=== PATIENT | male | born 1945 | race Caucasian/White ===

== ENCOUNTER → 2022-06-17 07:00 | Outpatient (REF) | payer OTHER, SELFPAY ==
--- NOTE | 2022-06-03 10:24 | CM ---
Addendum entered by Mariella Lira 08/21/22 10:10:
Patient's surgery date has been changed to 09/09/22. Spoke with patient via telephone. Reintroduced role of Orthopedic Navigator and confirmed information previously obtained for case management assessment. Also discussed orthopedic program and post
surgical plans. Reviewed anticipated length of stay and that goal is for him to return home at discharge.Patient is in agreement with tentative plan and states that his significant other will be home with him and can assist if needed.
Addendum entered by Mariella Lira 07/22/22 13:30:
Patient has not yet viewed the online education program; message was left with reminder to do so before surgery.
Addendum entered by Mariella Lira 07/01/22 10:42:
Patient's surgery date has changed to 07/29/22.
Original Note:
Patient is scheduled for an elective R Reverse TSA on 07/01/22. Spoke with patient prior to surgery. Introduced role of Orthopedic Navigator. Patient reports that he lives with his significant other in a two story home. Currently he functions
independently. He has a cane, raised toilet seat and shower seat. He has never had VN services. He gets dialysis at [facility] Thursday, Thursday and Thursday. PCP is Dr. Teetee Kellogg.
Discussed orthopedic program and post surgical plans. Reviewed anticipated length of stay and assistance that he may need at discharge. Explained that goal is for him to return home at discharge. Also reviewed MD follow up and transition to
outpatient therapy. Patient is in agreement with tentative plan and states that his significant other will be home with him and can assist if needed.
Patient will complete online education.
Plan: Orthopedic Navigator will be involved in the care of patient after surgery and will reassess discharge needs at that time.
--- NOTE | 2022-06-10 16:10 | PTCARENOTE ---
Requested ICD management from director global sales office via tiger text.
[2022-06-17 13:00] VITALS: BMI 28.2
[2022-06-17 13:46] LABS: Hematocrit 33.1 % (39.0-52.0); Mean Corp Hgb Conc. 33.2 g/dL (33.0-37.0); Mean Corpuscular Hgb 34.1 pg (27.0-31.0); Mean Corpuscular Volume 102.5 fL (80.0-94.0); Mean Platelet Volume 10.8 fL (7.4-10.4); Platelet Count 216 10^3/uL (130-400); Red Blood Cell Count 3.23 10^6/uL (4.70-6.10); Red Cell Dist. Width 13.2 % (11.5-14.5); White Blood Cell Count 5.3 10^3/uL (4.8-10.8)
[2022-06-17 14:03] LABS: ALT (SGPT) 19 U/L (0-50); AST (SGOT) 31 U/L (17-59); Albumin 4.4 g/dl (3.5-5.0); Alkaline Phosphatase 163 U/L (38-126); Blood Urea Nitrogen 22 mg/dl (9-20); Calcium 9.6 mg/dl (8.4-10.2); Carbon Dioxide 35 mmol/L (22-30); Chloride 92 mmol/L (98-107); Estimated Creatinine Clearance 13 ml/min; Glomerular Filtration Rate 12.5; Glucose 93 mg/dl (70-99); Sodium 138 mmol/L (135-145); Total Bilirubin 0.6 mg/dl (0.2-1.3); Total Protein 7.5 g/dl (6.3-8.2)
[2022-06-17 14:28] LABS: Glycohemoglobin (HgbA1c) 5.3 % (4.0-5.6)
[2022-06-17 15:02] VITALS: BMI 28.2
[2022-07-10 14:08] VITALS: BMI 28.5
[2022-07-10 14:27] LABS: Hematocrit 32.5 % (39.0-52.0); Hemoglobin 11.1 g/dL (13.0-18.0); Mean Corp Hgb Conc. 34.2 g/dL (33.0-37.0); Mean Corpuscular Volume 99.7 fL (80.0-94.0); Platelet Count 231 10^3/uL (130-400); Red Blood Cell Count 3.26 10^6/uL (4.70-6.10); Red Cell Dist. Width 13.3 % (11.5-14.5); White Blood Cell Count 6.7 10^3/uL (4.8-10.8)
[2022-07-10 14:41] LABS: ALT (SGPT) 19 U/L (0-50); AST (SGOT) 35 U/L (17-59); Albumin 4.4 g/dl (3.5-5.0); Alkaline Phosphatase 141 U/L (38-126); Blood Urea Nitrogen 23 mg/dl (9-20); Carbon Dioxide 35 mmol/L (22-30); Chloride 90 mmol/L (98-107); Estimated Creatinine Clearance 14 ml/min; Glomerular Filtration Rate 14.7; Glucose 106 mg/dl (70-99); Potassium 5.4 mmol/L (3.5-5.1); Sodium 136 mmol/L (135-145); Total Bilirubin 0.7 mg/dl (0.2-1.3); Total Protein 7.4 g/dl (6.3-8.2)
[2022-07-10 15:17] VITALS: BMI 28.2
[2022-08-26 11:38] LABS: Hematocrit 33.2 % (39.0-52.0); Hemoglobin 11.6 g/dL (13.0-18.0); Mean Corp Hgb Conc. 34.9 g/dL (33.0-37.0); Mean Corpuscular Hgb 34.3 pg (27.0-31.0); Mean Corpuscular Volume 98.2 fL (80.0-94.0); Mean Platelet Volume 10.3 fL (7.4-10.4); Platelet Count 153 10^3/uL (130-400); Red Blood Cell Count 3.38 10^6/uL (4.70-6.10); Red Cell Dist. Width 13.8 % (11.5-14.5); White Blood Cell Count 3.4 10^3/uL (4.8-10.8)
[2022-08-26 11:56] LABS: ALT (SGPT) 21 U/L (0-50); AST (SGOT) 33 U/L (17-59); Albumin 4.6 g/dl (3.5-5.0); Alkaline Phosphatase 115 U/L (38-126); Blood Urea Nitrogen 17 mg/dl (9-20); Calcium 8.9 mg/dl (8.4-10.2); Carbon Dioxide 35 mmol/L (22-30); Chloride 90 mmol/L (98-107); Estimated Creatinine Clearance 18 ml/min; Glomerular Filtration Rate 19.7; Glucose 86 mg/dl (70-99); Potassium 3.9 mmol/L (3.5-5.1); Sodium 138 mmol/L (135-145); Total Bilirubin 0.8 mg/dl (0.2-1.3); Total Protein 7.5 g/dl (6.3-8.2)
[2022-08-26 12:13] LABS: Glycohemoglobin (HgbA1c) 5.1 % (4.0-5.6)
[2022-08-26 13:43] VITALS: BMI 26.8
[2022-08-26 15:07] VITALS: BMI 28.2
== END ==
LOC: REG 07:00
PROVIDERS: ATTENDING PHYSICIAN Specialist; FAMILY PHYSICIAN Family Medicine; OTHER PHYSICIAN Internal Medicine; OTHER PHYSICIAN Specialist
DX: M19.011 Primary osteoarthritis, right shoulder (principal); Z01.812 Encounter for preprocedural laboratory examination
CPT/HCPCS: 36415; 80053; 83036; 85027; 86850; 86900; 86901; 87070

== ENCOUNTER → 2023-06-02 13:01 | Outpatient (REF) | payer OTHER, SELFPAY | LOC: RAD 13:01 | PROVIDERS: ATTENDING PHYSICIAN Surgery Vascular Surgery; FAMILY PHYSICIAN Family Medicine | DX: I77.0 Arteriovenous fistula, acquired (principal) | CPT/HCPCS: 93990 ==

== ENCOUNTER 2023-07-02 08:36 | Day surgery (SDC) | payer OTHER, SELFPAY ==
[2023-07-02] VITALS (8 sets, daily range): BP systolic 115–131; BP diastolic 54–77
[2023-07-02 09:13] LABS: Hematocrit 36.7 % (39.0-52.0); Hemoglobin 12.2 g/dL (13.0-18.0); Mean Corp Hgb Conc. 33.2 g/dL (33.0-37.0); Mean Corpuscular Hgb 34.8 pg (27.0-31.0); Mean Corpuscular Volume 104.6 fL (80.0-94.0); Mean Platelet Volume 10.4 fL (7.4-10.4); Platelet Count 228 10^3/uL (130-400); Red Blood Cell Count 3.51 10^6/uL (4.70-6.10); White Blood Cell Count 6.7 10^3/uL (4.8-10.8)
[2023-07-02 09:22] LABS: INR 0.95; PT 12.7 Sec (11.4-14.6)
[2023-07-02 09:23] LABS: APTT 32.4 Sec (23.4-35.0)
--- NOTE | 2023-07-02 10:19 | W.SUR.PREOP ---
Pre-Operative Surgical Note
-
I have examined this patient prior to the performance of the scheduled procedure.
The patient's condition is unchanged from the time of the current History and
Physical and the patient is able to undergo the scheduled procedure.
[2023-07-02 10:21] LABS: Blood Urea Nitrogen 23 mg/dl (9-20); Calcium 9.6 mg/dl (8.4-10.2); Carbon Dioxide 33 mmol/L (22-30); Chloride 92 mmol/L (98-107); Glucose 92 mg/dl (70-99); Potassium 4.4 mmol/L (3.5-5.1); Sodium 138 mmol/L (135-145); eGFR 11.58
--- NOTE | 2023-07-02 11:37 | W.SUR.POST ---
Surgical Immediate Post Op
Note
Pre Op Diagnosis: ESRD
Post Op Diagnosis: ESRD
Procedure Performed: LUE Fistulagram, central venogram, angioplasty/stent cephalic arch stenosis, angioplasty outflow veins stenoses
Primary Surgeon: Estrada
Anesthesia: local and sedation
Estimated Blood Loss: <2cc
Fluids: see anesthesia flow sheet
Drains/Shunts: none
Specimens/Cultures: none
Doppler/Duplex/Angio (Y/N): Y
Complications: none
Operative Findings: +thrill
--- NOTE | 2023-07-02 17:21 | OR.RPT ---
Operative Report
Operative Report
PROCEDURE DATE: 07/02/2023
Preoperative diagnosis:
1. End-stage renal disease on hemodialysis.
2. Prolonged bleeding after hemodialysis.
Postoperative diagnosis: Same
Procedure:
1. Left upper extremity fistulogram and central venogram.
2. Balloon angioplasty of cephalic arch stenosis with 6 mm, 8 mm angioplasty balloon.
3. Placement of covered stent [place] VBX 7 mm x 59 mm (post angioplastied with 8 mm balloon) recalcitrant cephalic arch stenosis.
4. Balloon angioplasty of multiple other venous outflow stenoses with 7 mm and 6 mm angioplasty balloons.
5. Supervision interpretation.
Surgeon: Estrada
Cigarette Making Examiner: None
Complications: None
Anesthesia: Local, sedation
Indications for procedure:
Prolonged bleeding after hemodialysis. Brought for fistulogram. Risk/benefits/alternatives all fully discussed. Patient understood all wish to proceed.
Description of procedure:
Patient was identified, brought to the operating room. Placed on the table in the supine position. After the adequate administration of anesthesia, the patient was prepped and draped in the standard surgical fashion. A standard preoperative
timeout was undertaken and everybody was in agreement with the plan.
Left upper extremity fistula was punctured near the antecubital fossa and a central facing direction using a micropuncture kit under direct duplex ultrasound guidance. A 6 Italian sheath was then advanced over a 0.035 inch wire. Fistulogram
demonstrated patent outflow of the fistula in the upper arm with 2 aneurysmal areas. Beyond this there was an area of severe stenosis and then the remainder of the upper arm vein looked reasonable. More centrally there is a slightly bulbous area
that may have had is stenosis in it. Almost look like a small pseudoaneurysm. Beyond here there is a severe string-like stenosis of the cephalic arch. Central venogram demonstrated no evidence of other central stenosis. I then selectively was
able to cannulate through the cephalic arch stenosis and catheterized the SVC. I exchanged for a Spect[employer] wire and then angioplastied the stenosis with a 6 mm balloon to predilate it and then an 8 mm angioplasty balloon. Completion angiogram
demonstrated okay results. The balloon waste had not resolved though and there was still some stenosis. Therefore I felt stenting this would be better. At this point I elected to place a 7 mm x 59 mm [place] VBX stent which I post angioplastied with
an 8 mm balloon. Completion angiogram now demonstrated excellent result. There is still mild residual stenosis in the mid cephalic arch but otherwise the stent looked good. Although at the edge of the stent or but just proximal (proximal edge)
there was still residual stenosis when I reangiograms. Therefore I balloon angioplastied that as well as other portions of the outflow vein including the mid upper arm stenosis. This was done with 7 mm angioplasty balloons. Finally I withdrew my
sheath a little bit and performed angiography in the immediate puncture site area and there was some stenosis there. I then used a 6 mm angioplasty balloon to angioplasty that with a good result. At this point I was very satisfied. I withdrew my
wires and catheters. A 4-0 Monocryl pursestring stitch was placed around the sheath entry site and tied down as the sheath was withdrawn. Manual pressure was also applied to the puncture site. Hemostasis was achieved. The patient tolerated the
procedure well.
== END 2023-07-02 13:30 | disposition home or self-care (01) ==
LOC: CATH 08:36
PROVIDERS: ATTENDING PHYSICIAN Surgery Vascular Surgery; FAMILY PHYSICIAN Internal Medicine; OTHER PHYSICIAN Internal Medicine
DX: T82.838A Hemorrhage due to vascular prosthetic devices, implants and grafts, initial encounter (principal); T82.858A Stenosis of other vascular prosthetic devices, implants and grafts, initial encounter; Y83.2 Surgical operation with anastomosis, bypass or graft as the cause of abnormal reaction of the patient, or of later complication, without mention of misadventure at the time of the procedure; I13.2 Hypertensive heart and chronic kidney disease with heart failure and with stage 5 chronic kidney disease, or end stage renal disease; E11.22 Type 2 diabetes mellitus with diabetic chronic kidney disease; N18.6 End stage renal disease; I50.32 Chronic diastolic (congestive) heart failure; Z99.2 Dependence on renal dialysis; Z79.82 Long term (current) use of aspirin
CPT/HCPCS: 36903; 76937; 80048; 85027; 85610; 85730; 86850; 86900; 86901; 93005; C1725; C1769; C1874; C1894; Q9967

== ENCOUNTER → 2023-07-28 14:24 | Outpatient (REF) | payer OTHER, SELFPAY | LOC: RAD 14:24 | PROVIDERS: ATTENDING PHYSICIAN Internal Medicine | DX: M79.674 Pain in right toe(s) (principal) | CPT/HCPCS: 73660 ==

== ENCOUNTER → 2023-11-05 14:00 | Outpatient (REF) | payer OTHER, SELFPAY | LOC: RAD 14:00 | PROVIDERS: ATTENDING PHYSICIAN Surgery Vascular Surgery; FAMILY PHYSICIAN Family Medicine | DX: I77.0 Arteriovenous fistula, acquired (principal) | CPT/HCPCS: 93990 ==

== ENCOUNTER → 2023-11-10 06:41 | Day surgery (SDC) | payer OTHER, SELFPAY | LOC: SDS 06:41 | PROVIDERS: ATTENDING PHYSICIAN Surgery | DX: K40.90 Unilateral inguinal hernia, without obstruction or gangrene, not specified as recurrent (principal); Z53.8 Procedure and treatment not carried out for other reasons | CPT/HCPCS: 49505 ==

== ENCOUNTER 2023-11-26 09:53 | Day surgery (SDC) | payer OTHER, SELFPAY ==
[2023-11-26] VITALS (7 sets, daily range): BP systolic 123–145; BP diastolic 65–74
[2023-11-26 10:49] LABS: INR 1.02; PT 13.4 Sec (11.4-14.6)
[2023-11-26 10:50] LABS: APTT 32.6 Sec (23.4-35.0)
[2023-11-26 11:00] LABS: Blood Urea Nitrogen 27 mg/dl (9-20); Calcium 9.7 mg/dl (8.4-10.2); Carbon Dioxide 33 mmol/L (22-30); Chloride 92 mmol/L (98-107); Glucose 101 mg/dl (70-99); Potassium 4.4 mmol/L (3.5-5.1); Sodium 137 mmol/L (135-145); eGFR 10.02
[2023-11-26] MEDS: NSS 500 IV (11:03)
[2023-11-26 11:11] LABS: Hematocrit 33.8 % (39.0-52.0); Hemoglobin 11.5 g/dL (13.0-18.0); Mean Corpuscular Hgb 33.2 pg (27.0-31.0); Mean Corpuscular Volume 97.7 fL (80.0-94.0); Mean Platelet Volume 10.9 fL (7.4-10.4); Platelet Count 218 10^3/uL (130-400); Red Blood Cell Count 3.46 10^6/uL (4.70-6.10); Red Cell Dist. Width 13.2 % (11.5-14.5); White Blood Cell Count 6.6 10^3/uL (4.8-10.8)
--- NOTE | 2023-11-26 14:21 | W.SUR.POST ---
Surgical Immediate Post Op
Note
Pre Op Diagnosis: ESRD
Post Op Diagnosis: ESRD
Procedure Performed: LUE fistulogram, central venogram, angioplasty of outflow vein stenosis with 6mm and 7mm balloon
Primary Surgeon: Beny Dorado MD
Secondary Surgeons: N/A
Anesthesia: MAC
Estimated Blood Loss: 2ml
Fluids: See anesthesia flowsheet
Drains/Shunts: N/A
Specimens/Cultures: N/A
Doppler/Duplex/Angio (Y/N): Y
Complications: None
Operative Findings: Successful angioplasty of outflow vein stenosis
--- NOTE | 2023-11-26 15:02 | OR.RPT ---
Operative Report
Operative Report
PROCEDURE DATE: 11/26/2023
Preoperative diagnosis:
1. End-stage renal disease on hemodialysis.
2. Failing left upper extremity arteriovenous fistula.
Postoperative diagnosis: Same
Procedure:
1. Left upper extremity fistulogram and central venogram.
2. Balloon angioplasty of outflow vein stenosis with 6 mm x 6 cm, and a 7 mm x 6 cm angioplasty balloons.
3. Supervision and interpretation.
Surgeon: Estrada
Construction Services Technician: None
Complications: None
Anesthesia: Local, sedation
Fluoroscopy:
4.2 min
7 mGy
1.85 Gy.cm2
Indications for procedure:
End-stage renal disease on hemodialysis status post left upper extremity arteriovenous fistula creation. Concern for failing fistula based on low flows noted on hemodialysis referred for fistulogram. Hemodialysis duplex suggested stenosis in the
outflow vein. Risk/benefit/alternatives of fistulogram fully discussed. Patient understood all wish to proceed.
Description of procedure:
Patient was identified, brought to the operating room. Placed on the table in the supine position. After the adequate administration of anesthesia, the patient was prepped and draped in the standard surgical fashion. A standard preoperative
timeout was undertaken and everybody was in agreement with the plan.
The left upper extremity fistula outflow vein (cephalic vein) was punctured in the proximal upper arm in a peripheral facing direction under direct duplex ultrasound guidance. This was done with a micropuncture kit. A 5 Mongolian sheath was then
advanced over a 0.035 inch wire. Note I had mapped the outflow vein of the fistula under duplex prior to puncturing. I noted that there appeared to be a stenotic long segment in the outflow vein immediately proximal to a aneurysmal area but just
distal to the anastomosis. That is why it punctured and a peripheral facing direction from the proximal upper arm. Fistulogram was performed at this point that demonstrated patent fistula, but filling into the fistula was slightly slow. In
addition the 6 cm beyond the anastomosis appeared diffusely stenotic and diseased with some areas of severe focal stenosis. The anastomosis itself appeared patent with no significant stenosis. Beyond this stenotic area there was an aneurysmal
segment. Central venogram demonstrated patent remainder of the upper arm outflow vein, and patent cephalic arch stent. At the peripheral edge of the cephalic vein stent there appeared to be a potential moderate to high-grade stenosis. No other
central stenosis was identified. At this point I selectively cannulated the inflow brachial artery using a flopping of hydrophilic wire and a glide catheter. This proved to be somewhat challenging due to the stenosis, wire advancement was slightly
challenging. However I was able to do so. Next, I advanced my catheter and then exchanged for a [employer] wire. I then used a 6 mm x 6 cm angioplasty balloon to angioplasty the stenotic segment. Completion angiogram demonstrated improvement, but I
felt that I could reduce some of the stenosis further. Therefore I then exchanged for 7 mm angioplasty balloon. Completion angiogram after the 7 mm angioplasty with prolonged inflation demonstrated excellent result. No significant residual
stenosis was identified. At this point the wires and catheters were withdrawn. A 4-0 Monocryl pursestring stitch was placed around the sheath entry site and this was tied down as the sheath was withdrawn. Manual pressure was also applied.
Hemostasis was fully achieved. The patient tolerated procedure well. He had a reasonable thrill upon completion in the fistula.
== END 2023-11-26 16:02 | disposition home or self-care (01) ==
LOC: CATH 09:53
PROVIDERS: ATTENDING PHYSICIAN Surgery Vascular Surgery; FAMILY PHYSICIAN Internal Medicine; OTHER PHYSICIAN Internal Medicine
DX: T82.858A Stenosis of other vascular prosthetic devices, implants and grafts, initial encounter (principal); Y83.2 Surgical operation with anastomosis, bypass or graft as the cause of abnormal reaction of the patient, or of later complication, without mention of misadventure at the time of the procedure; I12.0 Hypertensive chronic kidney disease with stage 5 chronic kidney disease or end stage renal disease; N18.6 End stage renal disease; Z99.2 Dependence on renal dialysis; Z87.891 Personal history of nicotine dependence
CPT/HCPCS: 36902; 80048; 85027; 85610; 85730; 86850; 86900; 86901; C1725; C1769; C1894

== ENCOUNTER 2023-12-19 14:14 | Inpatient (IN) | payer OTHER, SELFPAY ==
[2023-12-19] VITALS (9 sets, daily range): BP systolic 118–143; BP diastolic 67–91; BMI 23.9
[2023-12-19 09:42] LABS: % Basophils 0.9 % (0-2); % Eosinophils 2.5 % (0-6); % Lymphocytes 24.5 % (20.5-51.1); % Monocytes 14.1 % (1.7-9.3); Absolute Basophils 0.1 10^3/uL (0-0.2); Absolute Eosinophils 0.2 10^3/uL (0-0.7); Absolute Lymphocytes 1.6 10^3/uL (1.2-3.4); Absolute Monocytes 0.9 10^3/uL (0.1-0.6); Absolute Neutrophils 3.7 10^3/uL (1.4-6.5); Hematocrit 28.7 % (39.0-52.0); Mean Corp Hgb Conc. 34.8 g/dL (33.0-37.0); Mean Corpuscular Hgb 34.2 pg (27.0-31.0); Mean Corpuscular Volume 98.3 fL (80.0-94.0); Mean Platelet Volume 10.5 fL (7.4-10.4); Nucleated Red Blood Cells % 0 % (-); Platelet Count 166 10^3/uL (130-400); Red Blood Cell Count 2.92 10^6/uL (4.70-6.10); Red Cell Dist. Width 13.4 % (11.5-14.5); White Blood Cell Count 6.4 10^3/uL (4.8-10.8)
[2023-12-19 09:53] LABS: APTT 32.8 Sec (23.4-35.0)
--- NOTE | 2023-12-19 10:05 | ED.GENMED ---
History of Present Illness
General
Chief Complaint: Catheter/Tube Problem
Source: patient
Time Seen by Provider: 12/19/23 09:06
History of Present Illness
History of Present Illness:
78yoM with a history of ESRD on hemodialysis M/W/F presenting for evaluation of a malfunction of his L arm fistula. Patient was at dialysis yesterday and only had 1 hour of his session before his fistula stopped working. He was sent to the ED for
evaluation. He follows with vascular surgery, Dr. Dorado, and recently underwent a fistulogram with balloon angioplasty of outflow vein stenosis on 11/26/23. Patient is currently asymptomatic other than some malaise. No fevers, vomiting, diarrhea,
shortness of breath.
Past History
Past History
ED Past Medical History: CHF, HTN, Renal failure, Valvular disease and Other (Chronic renal insufficiency)
ED Past Surgical History: Cardiac, Orthopedic, Tonsilectomy and Other
Social History
Tobacco: Non-smoker
Alcohol: Occasional
Drug: None
Personal:
Living: with family
Employment: Retired
Family History
Family History: Negative Diabetes, Hypertension or CAD
Phy Exam
General Physical Exam
General Presentation: well appearing and no apparent distress
General age: appears stated age
General Skin: warm and dry
General Habitus: normal
General Mental: alert
Cardiovascular Exam
Cardiovascular Exam: regular rate/rhythm and systolic murmur
Pulmonary Exam
Pulmonary Exam: lungs clear, no respiratory distress, no crackles and no wheezing
[place] Coma Scale
Eye Opening: Spontaneous
Verbal Response: Oriented
Motor Response: Obeys Commands
GCS Total Score: 15
Musculoskeletal Exam
Musculoskeletal Exam: other (L upper arm fistula present. No palpable thrill. )
Skin Exam
Skin Exam: normal color and warm/dry
Psychiatric Exam
Psychiatric Exam: normal mood/affect
Course
Orders/Labs/Results
Orders:
Orders
12/19/23 09:20
Consult Vascular Surgery [Vascular Surgery Consult] Urgent
Consulting Provider: Sylvia Hall
Was physician already notified: Yes
Reason for consult: Failed fistula
12/19/23 09:30
Complete Blood Count/With Diff Urgent
Comprehensive Metabolic Panel Urgent
PTT Urgent
Prothrombin Time Urgent
12/19/23 09:35
Consult Nephrology [NEPHROLOGY CONSULT] Urgent
Consulting Provider: Dav Aranda V.
Was physician already notified: Yes
12/19/23 Lunch
Sodium, 2 Gram
At Your Request: Full Participation
Does patient need a safe tray?: No
Fluid Restriction: 1440 mL/day (48 oz)
Low Sodium: Potassium, 2 Gram
12/19/23 13:08
Admit/Transfer Patient As Directed
Co-Sign Provider:
Level of Care: Inpatient admission
Assign to:: Telemetry
Physician / Group: Sivakumar Lopez
Transfer to: Telemetry
Diagnosis: LUE fistula malfunction
Patient Condition: Good
Reason for Telemetry: Arrhythmia
Date to Stop Telemetry: 12/22/23
Time to Stop Telemetry: 11:00
Reason for Hospitalization: Fistula malfunction, vascular consult for intervention/secondary access
Expected length of stay greater than two midnights?: Yes
ELOS- Estimated Length of Stay in days: 2
I certify the patient meets the requirements for IP care: Yes
12/19/23 13:09
PRN Pain Medication Management As Directed
May give lesser potent ordered pain med per pt: Yes
preference::
Protocol:: Medication orders for pain may be administered in a
manner that supports deferring to patient preference
when the pt is:
- Requesting an ordered lesser potent pain medication.
Least to most potent pain medications are defined
as: acetaminophen < NSAID < tramadol < opioids
(morphine, oxycodone, hydromorphone).
- Requesting a lesser dose of the same medication IF
ORDERED.
- Requesting a less intrusive route of administration
if both routes are prescribed by the provider (PO <
IV).
12/19/23 13:12
Code Status As Directed
Resuscitation Status: Full Code
12/19/23 14:48
Bisacodyl [Dulcolax] 10 mg RECTAL [id number] PRN
Docusate W/Senna [Senokot-S] 1 tablet PO BIDPRN PRN
Polyethylene Glycol Powder [Miralax] 17 grams PO DAILYPRN PRN
doxepin 6 mg PO HS PRN
12/19/23 14:48
Activity As Directed
Activity Level: Out of Bed-Early Mobility
Intake/ Output As Directed
Frequency: q12h
Pneumatic Compression Sleeves As Directed
Type: Knee high
Vital Signs As Directed
Frequency: Per unit guidelines
Weight As Directed
Frequency: Daily
DX Deep Vein Thrombosis Video Routine
12/19/23 16:00
HydrALAZINE [Apresoline] 25 mg PO TID
Sevelamer Carbonate [Renvela] 800 mg PO TID
12/19/23 18:00
Atorvastatin [Lipitor] 40 mg PO QPM
12/19/23 20:00
Furosemide [Lasix] 80 mg PO BID
Metoprolol Xl [Toprol Xl] 50 mg PO BID
Nabumetone [Relafen] 750 mg PO BID
[id number] [ProRenal QD] 1 cap PO BID
12/20/23 06:00
Basic Metabolic Panel IN AM
Complete Blood Count/With Diff IN AM
Magnesium IN AM
12/20/23 08:00
ISOSORBIDE MONOnitrate ER [Imdur (Extended Release)] 30 mg PO DAILY
Metolazone [Zaroxolyn] 5 mg PO DAILY
ropinirole 4 mg PO DAILY
12/20/23 12:00
Allopurinol [Zyloprim] 100 mg PO NOON
Aspirin Low Dose EC [Aspir Low (Enteric Coated)] 81 mg PO NOON
12/21/23 13:08
calcitriol 0.5 mcg PO MOWEFR
12/22/23 11:00
DC Protocol for Telemetry ONCE
Abnormal Lab Results
12/19/23
09:30
RBC 2.92 L 10^6/uL
(4.70-6.10)
Hgb 10.0 L g/dL
(13.0-18.0)
Hct 28.7 L %
(39.0-52.0)
MCV 98.3 H fL
(80.0-94.0)
MCH 34.2 H pg
(27.0-31.0)
MPV 10.5 H fL
(7.4-10.4)
Absolute Monos (auto) 0.9 H 10^3/uL
(0.1-0.6)
Monocytes % 14.1 H %
(1.7-9.3)
Chloride 93 L mmol/L
(98-107)
BUN 48 H mg/dl
(9-20)
Creatinine 8.5 H* mg/dL
(0.7-1.3)
12/19/23 09:30
12/19/23 09:30
Vital Signs
Initial and Last Documented VS:
Initial Vital Signs
Temp Pulse Resp BP Pulse Ox
98.1 F 83 16 139/77 99
12/19/23 08:46 12/19/23 08:46 12/19/23 08:46 12/19/23 08:46 12/19/23 08:46
Last Documented Vital Signs
Temp Pulse Resp BP Pulse Ox
98.6 F 79 16 142/70 99
12/19/23 14:46 12/19/23 14:46 12/19/23 14:46 12/19/23 14:46 12/19/23 14:46
MDM/Problems Addressed
Differential Diagnosis Includes:
78yoM here for an AV fistula malfunction. Fistula stopped working yesterday and he only had 1 hour of dialysis. He is relatively asymptomatic currently. He is afebrile and hemodynamically stable. He is well appearing in no distress. Differential
diagnosis includes but is not limited to: fistula malfunction, hyperkalemia, no clinical evidence of volume overload
Initial ED plan: Check CBC, CMP, and coags. Will consult vascular surgery and nephrology.
*Critical Care Note
Total Time (30-74mins, 75-104mins- exclusive of procedures): Not Applicable
Update Note
Update Note:
No hyperkalemia or metabolic acidosis noted on labs. No volume overload clinically. No emergent need for dialysis. Vascular planning a declotting procedure on Thursday. He will require admission over the weekend until his procedure.
ED Attending Note
-
Portions of this chart may have been created with voice recognition software.� Occasional wrong word or��sound alike� substitutions may have occurred due to the inherent limitations of voice recognition software.
Discharge Plan
Departure
Patient Disposition: Admit
Date of Disposition: 12/19/23
Time of Disposition: 10:01
Presentation/result/management discussed w/ accepting MD/DO: Hospitalist
Discharge Problem:
Dialysis AV fistula malfunction
Interventions
Interventions:
*Risk Screen - Suicide Last Done: 12/19/23 09:01
*General Assessment Last Done: 12/19/23 09:01
*Neglect/Abuse Screening Last Done: 12/19/23 09:01
ED- Fall Risk Assessment Last Done: 12/19/23 09:01
*ED COVID-19 Vaccine History Last Done: 12/19/23 09:01
*Nursing Disposition Last Done: 12/19/23 14:47
IF-Sdgzod-Tqhxveseol Assessment Last Done: 12/19/23 09:01
ED-Male Genitourinary Assessment Last Done: 12/19/23 09:01
Discharge Date and Time
Discharge Date/Time: 12/19/23 14:47
[2023-12-19 10:07] LABS: AST (SGOT) 21 U/L (17-59); Albumin 4.1 g/dl (3.5-5.0); Alkaline Phosphatase 98 U/L (38-126); Blood Urea Nitrogen 48 mg/dl (9-20); Carbon Dioxide 24 mmol/L (22-30); Chloride 93 mmol/L (98-107); Estimated Creatinine Clearance 7 ml/min; Glucose 84 mg/dl (70-99); Potassium 4.9 mmol/L (3.5-5.1); Sodium 137 mmol/L (135-145); Total Bilirubin 0.7 mg/dl (0.2-1.3); Total Protein 6.5 g/dl (6.3-8.2); eGFR 5.94
[2023-12-19 10:16] LABS: ALT (SGPT) 10 U/L (0-50)
--- NOTE | 2023-12-19 10:18 | W.CON.NEPH ---
Consultation
-
Date/Time Consultation Requested: 12/19/2023 10:00AM
Date/Time Consultation Performed: 12/19/2023 10:00 AM
Requesting Provider: Dr. Arroyo
Performing Provider: Dr. Aranda
Reason for Consultation: End-stage renal disease
Medical History
-
Chief Complaint: End-stage renal disease
History of Present Illness:
The patient is a 78 year old with a history of ESRD MWF maintain on HD at [facility]. The patient underwent left upper extremity AV fistula balloon angioplasty on 11/26/2023 for failing AV fistula. During his dialysis last evening
approximately chcf through the treatment his AV fistula became dysfunction. He was instructed to report to the emergency room today for vascular evaluation of his downed AV fistula. The patient has a history of anemia of chronic kidney disease
and is maintained on RILEY therapy. He is maintained on calcitriol for secondary hyperparathyroidism and sevelamer for his hyperphosphatemia. He is maintained on a multidrug antihypertensive regimen for his hypertension. He offers no other specific
complaints on presentation.
Past Medical History
1. History of ESRD on dialysis Thursday, Thursday, Thursday.
2. Recent history of right hip fracture, conservative treatment.
3. Anemia of CKD.
4. Secondary hyperparathyroidism.
5. Hypertension, multidrug.
6. Left arm AV fistula with previous interventions.
7. Cardiomyopathy with an EF of 25-30%, status post ICD.
8. Hyperphosphatemia.
9. Moderate aortic stenosis.
10.Severe TR.
11.Pulmonary hypertension.
12.Bilateral shoulder arthritis.
13.Chronic right knee pain.
14.Recent 8 cm left inguinal hernia.
Social History
Tobacco: Former Smoker
Alcohol: Occasional
Family History
No CKD
Allergies / Home Medications
Allergy/AdvReac Type Severity Reaction Status Date / Time
naproxen Allergy Hives Verified 11/24/23 15:33
�Medication �Instructions �Recorded �Confirmed �Type
allopurinol 100 mg tablet 100 mg PO NOON Gout 10/28/21 11/26/23 History
aspirin 81 mg tablet,delayed 81 mg PO NOON Blood Clot 10/28/21 11/26/23 History
release (Krystal Low Dose Aspirin) Prevention/Tx
atorvastatin 40 mg tablet 40 mg PO QPM High cholesterol 10/28/21 11/26/23 History
furosemide 80 mg tablet 80 mg PO BID Fluid 10/28/21 11/26/23 History
retention/Swelling
isosorbide mononitrate 30 mg 30 mg PO DAILY Heart 10/28/21 11/26/23 History
tablet,extended release 24 hr disease/condition
metolazone 5 mg tablet 5 mg PO DAILY Fluid 10/28/21 11/26/23 History
retention/Swelling
mv,Rt-acd-BR-C2-GU-0-ltz-rrf-arxh 1 cap PO BID High Cholesterol 09/29/22 11/26/23 History
oil 400 mcg-500 unit capsule
(ProRenal QD)
hydralazine 25 mg tablet 25 mg PO TID Blood Pressure 11/21/22 11/26/23 History
nabumetone 750 mg tablet 750 mg PO BID 06/15/23 11/26/23 History
calcitriol 0.5 mcg capsule 0.5 mcg PO MOWEFR 07/02/23 11/26/23 History
doxepin 6 mg tablet 6 mg PO HS PRN sleep 07/02/23 11/26/23 History
metoprolol succinate 50 mg 50 mg PO BID 07/02/23 11/26/23 History
tablet,extended release 24 hr
(Toprol XL)
ropinirole 4 mg tablet 4 mg PO DAILY 07/02/23 11/26/23 History
sevelamer carbonate 800 mg tablet 800 mg PO TID 07/02/23 11/26/23 History
(Renvela)
Review of Systems
-
History Source: Patient
All other systems: Negative unless noted
Constitutional: Fatigue
EENT: No Symptoms
Respiratory: No Symptoms
Cardiac: No Symptoms
Abdomen/GI: No Symptoms
: Other (Baseline scant urine output)
Musculoskeletal: No Symptoms
Skin: No Symptoms
Neurological: No Symptoms
Endocrine: No Symptoms
Hematologic/Lymphatic: Other (Left upper extremity AV fistula)
Physical Exam
Vital Signs
Vital Signs
Temp Pulse Resp BP Pulse Ox
98.1 F 83 16 132/78 97
12/19/23 08:46 12/19/23 08:46 12/19/23 08:46 12/19/23 09:03 12/19/23 09:04
Lab Results
12/19/23 09:30
12/19/23 09:30
WBC 6.4 10^3/uL (4.8-10.8) 12/19/23 09:30
RBC 2.92 10^6/uL (4.70-6.10) L 12/19/23 09:30
Hgb 10.0 g/dL (13.0-18.0) L 12/19/23 09:30
Hct 28.7 % (39.0-52.0) L 12/19/23 09:30
Plt Count 166 10^3/uL (130-400) 12/19/23 09:30
Sodium 137 mmol/L (135-145) 12/19/23 09:30
Potassium 4.9 mmol/L (3.5-5.1) 12/19/23 09:30
Chloride 93 mmol/L (98-107) L 12/19/23 09:30
Carbon Dioxide 24 mmol/L (22-30) 12/19/23 09:30
BUN 48 mg/dl (9-20) H 12/19/23 09:30
Creatinine 8.5 mg/dL (0.7-1.3) H* 12/19/23 09:30
eGFR 5.94 12/19/23 09:30
Glucose 84 mg/dl (70-99) 12/19/23 09:30
Calcium 9.0 mg/dl (8.4-10.2) 12/19/23 09:30
Albumin 4.1 g/dl (3.5-5.0) 12/19/23 09:30
Physical Exam
General: AOx3, Nontoxic , NAD
HEENT: PERRL, EOMI, Anicteric, Conjunctivae Clear, Ear/Nose Intact, Hearing Normal, Oropharynx Clear/Moist, Dentition Intact, Facial Symmetry, Neck Supple, Neck: Trachea Midline, No JVD and No Thyromegaly, no Bruits
Respiratory: Clear to auscultation bilaterally with normal lung exersion
Cardiac: S1/S2 and Regular Rate with 4/6 TAMIR at left border
Breast: Deferred by me
Abdomen: Soft, Nontender, Nondistended, Normal Bowel Sounds and No Hepatosplenomegaly
Rectal: Deferred by Provider
Genito-urinary: No Costovertebral Tenderness
Extremities: No Clubbing, No Cyanosis and No Edema
Skin: No Rash or open lesions
Neuro: Nonfocal/Grossly Intact, CN II-XII (Intact) and Strength (Musculoskeletal exam 5 out of 5 both upper and lower extremities)
Hematologic/Lymphatic: No Cervical Lymphadenopathy, No Submandibular Lymphadenopathy and No Supraclavicular Lymphadenopathy
Psych: Mood/afflect pleasant, Insight/judgement good and Appropriate
Vascular: plus 1 pedal and radial pulses
Vascular Access: AVF (Left brachiocephalic AV fistula no thrill or bruit)
Data Reviewed
-
Medical Tests (Nuc Med, Echo etc): Other (AV fistulogram report to be reviewed, November 2023 AV fistula report reviewed)
Labs: Labs Reviewed by me (BMP CBC)
Old Records: Reviewed (Reviewed previous records in EMR from 823 re: COVID-pneumonia and ESRD)
Assessment/Plan
-
Impression:
AVF dysfunction s/p AVF PCI 12/03
ESRD MWF
Anemia
HTN
2pth
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
hyperphosphatemia
Moderate aortic stenosis
Severe TR
Pulmonary hypertension
Plan:
No acute need for dialysis today based on labs and volume status
Will reevaluate tomorrow for possible HD and may require temp HD catheter
Hopefully patient can wait till Thursday to have AV fistula intervention and dialysis
Vascular has been consulted
Maintain oral antihypertensives for blood pressure control
RILEY will be provided on dialysis for anemia
Maintain calcitriol for secondary hyperparathyroid
Maintain phosphate binders with meals already
Maintain less than 2 g sodium potassium diet and fluid restriction of 48 ounces daily
--- NOTE | 2023-12-19 12:47 | HPS.HSE ---
Family Physician
-
Family Physician: Luís Keane
Chief Complaint
-
Tube/Line problem
History of Present Illness
78-year-old female with ESRD (HD M/W/F; C/B anemia, bone mineral disease), HFrEF (EF 25 to 30%, s/p ICD), pulmonary hypertension, valvular disease (moderate , severe TR), HTN, bilateral shoulder OA, s/p recent right hip fracture is presenting to
the ED after malfunction of his left arm fistula use for dialysis access. He was at his dialysis center yesterday and only had 1 hour before his fistula stopped working. He was sent to the ED for evaluation. Follows with vascular surgery,
Estrada, who performed fistulogram with balloon angioplasty of the outflow vein stenosis on 11/26/2023. He denies any acute symptoms other than some mild malaise. AFVSS on arrival. Labs showed creatinine 8.5, BUN 48, hemoglobin 10 but otherwise
unremarkable and no findings necessitating urgent hemodialysis. Was seen by nephrology while in the ED who recommended holding off on HD today and planning for HD tomorrow. Vascular surgery was consulted, home medications were continued and recs
for 2 g sodium and potassium restricted diet with 48 ounce fluid restriction provided
Medical History
Past Medical History
Past Medical History: Reports CHF, HTN and Valvular Disease
Additional Past Medical History:
ESRD (M/W/F)
Past Surgical History: Reports Cardiac and Orthopedic
Social History
Tobacco: Former Smoker
Alcohol: Occasional
Drug: None
Family History
Family History: Not pertinent
Allergies / Home Medications
Allergies reflects when Allergies were last updated in [employer].
Home Medications with original date entered in [employer]
Allergy/Medication List:
Allergies
Allergy/AdvReac Type Severity Reaction Status Date / Time
naproxen Allergy Hives Verified 11/24/23 15:33
Home Medications
allopurinol 100 mg tablet 100 mg PO NOON Gout 10/28/21
aspirin 81 mg tablet,delayed release (Krystal Low Dose Aspirin) 81 mg PO NOON Blood Clot Prevention/Tx 10/28/21
atorvastatin 40 mg tablet 40 mg PO QPM High cholesterol 10/28/21
furosemide 80 mg tablet 80 mg PO BID Fluid retention/Swelling 10/28/21
isosorbide mononitrate 30 mg tablet,extended release 24 hr 30 mg PO DAILY Heart disease/condition 10/28/21
metolazone 5 mg tablet 5 mg PO DAILY Fluid retention/Swelling 10/28/21
mv,Am-evv-FG-D1-NK-1-cwr-mcy-eklq oil 400 mcg-500 unit capsule (ProRenal QD) 1 cap PO BID High Cholesterol 09/29/22
hydralazine 25 mg tablet 25 mg PO TID Blood Pressure 11/21/22
nabumetone 750 mg tablet 750 mg PO BID 06/15/23
calcitriol 0.5 mcg capsule 0.5 mcg PO MOWEFR 07/02/23
doxepin 6 mg tablet 6 mg PO HS PRN sleep 07/02/23
metoprolol succinate 50 mg tablet,extended release 24 hr (Toprol XL) 50 mg PO BID 07/02/23
ropinirole 4 mg tablet 4 mg PO DAILY 07/02/23
sevelamer carbonate 800 mg tablet (Renvela) 800 mg PO TID 07/02/23
Review of Systems
-
A 12 point ROS was completed and negative except as noted: Yes
Constitutional: Reports No Symptoms
EENT: Reports No Symptoms
Respiratory: Reports No Symptoms
Cardiac: Reports No Symptoms
Abdomen/GI: Reports No Symptoms
: Reports No Symptoms
Musculoskeletal: Reports No Symptoms
Skin: Reports No Symptoms
Neurological: Reports No Symptoms
Endocrine: Reports No Symptoms
Hematologic/Lymphatic: Reports No Symptoms
Physical Exam
Vital Signs
Vital Signs
Temp Pulse Resp BP Pulse Ox
98.1 F 83 16 143/91 95
12/19/23 08:46 12/19/23 08:46 12/19/23 08:46 12/19/23 12:00 12/19/23 12:15
Physical Exam
General: No Apparent Distress and Comfortable
HEENT: NormoCephalic, Anicteric and Moist mucous membranes
Respiratory: Clear and Non Labored Respirations; No Wheezes, Rales or Rhonchi
Cardiac: S1/S2, Regular Rhythm and Murmur; No Rub, Gallop, Peripheral Edema or JVD
GI: Soft, Non Tender, Non Distended and Normal Bowel Sounds
Musculoskeletal: No Clubbing, No Cyanosis and No Edema
Skin: Warm and Dry; No Rash
Neuro: AO x 3, Nonfocal/grossly intact and Cranial Nerves Intact
Psych: Calm
Laboratory Results
-
12/19/23 09:30
12/19/23 09:30
Laboratory Results
PT 14.0 Sec (11.4-14.6) 12/19/23 09:30
INR 1.10 12/19/23 09:30
APTT 32.8 Sec (23.4-35.0) 12/19/23 09:30
Total Bilirubin 0.7 mg/dl (0.2-1.3) 12/19/23 09:30
AST 21 U/L (17-59) 12/19/23 09:30
ALT 10 U/L (0-50) 12/19/23 09:30
Alkaline Phosphatase 98 U/L (38-126) 12/19/23 09:30
Data Reviewed
-
Lab Data: Labs Reviewed by me and Discussed with Patient
Impression/Plan
-
#ESRD on HD M//
#LUE fistula malfunction
#Anemia of CKD on EPO
#Secondary hyperparathyroidism
-Presented with fistula malfunction, dialysis session yesterday discontinued after 1 hour
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
-Home medications include calcitriol, sevelamer, prorenal capsule; on sequential nephron blockade for diuresis
-Evaluated by nephrology, no need for urgent dialysis at this time, labs without acute indication
-Vascular surgery was consulted for intervention to correct fistula, declotting procedure planned Thursday
-Trend daily labs for consideration of hemodialysis before Thursday
-Sodium, potassium, fluid restricted diet
#Resistant hypertension
-Currently on multimodal regimen, suspect this contributed to his ESRD
-Home medications include hydralazine, isosorbide, Lasix, metolazone, beta-nadege; on HD for additional volume removal
-Upon arrival blood pressure 143/91, will continue to monitor closely
-Order as needed hydralazine for SBP >190 mmHg
#HFrEF -- LVEF 25 to 30% on last TTE
#Severe pulmonary hypertension with TR
#Valvular heart disease (MR, TR, moderate )
#Status post AICD
-Unclear etiology, may be progressive hypertensive cardiomyopathy versus valvular disease versus underlying ischemia
-GDMT includes beta-nadege; no ACEi/ARB, MRA, SGLT2
-Diuretic regimen includes Lasix 80 mg twice daily, metolazone 5 mg daily
-Appears euvolemic as of now, no indication for urgent dialysis
-Will trend I's/O's, sodium and fluid restricted diet
#Bilateral shoulder osteoarthritis
-Currently on nabumetone 750 mg twice daily
#Status post recent right hip fracture
-Treated conservatively
#Gout
-Remains on allopurinol 100 mg at noon
-No signs of flare at this time
DVT prophylaxis: SCDs
Diet: 2 g sodium and potassium restricted, 48 ounce fluid restricted
CODE STATUS:
I will be admitting Kieran Lott to the hospital for workup of the cause/intervention to fix the malfunction to his left upper extremity fistula for HD access. He is at high risk of ongoing morbidity and mortality from volume overload, electrolyte
disturbance, acidemia the context of end-stage renal disease without the ability to perform HD. He will require intensive monitoring his labs. He may require potential placement of secondary access for dialysis. I have spoken with the ED
provider, medical technologist blood bank, vascular surgery team in regards to this patient's care.
--- NOTE | 2023-12-19 14:30 | PTCARENOTE ---
Patient admitted through the emergency room from home with a non functioning left upper arm fistula.He will have a vascular consult with possible surgery on Thursday.The patient is alert and oriented and denies any pain.He is in his bed with the call
sterling in reach.
[2023-12-19] MEDS: RENVELA 800 MG PO ×2 (16:47→22:21)
[2023-12-19] MEDS: APRESOLINE 25 MG PO ×2 (16:47→22:21)
[2023-12-19] MEDS: LIPITOR 40 MG PO (17:15)
[2023-12-19] MEDS: LASIX 80 MG PO (20:41)
[2023-12-19] MEDS: TOPROL XL 50 MG PO (20:41)
[2023-12-20] VITALS (7 sets, daily range): BP systolic 116–146; BP diastolic 52–75; BMI 26.8
[2023-12-20] MEDS: REQUIP 4 MG PO ×2 (02:53→22:00)
[2023-12-20 06:10] LABS: % Basophils 0.8 % (0-2); % Eosinophils 3.7 % (0-6); % Immature Granulocytes 0.3 % (0-0.5); % Lymphocytes 24.7 % (20.5-51.1); % Neutrophils 57.5 % (42.2-75.2); Absolute Basophils 0.1 10^3/uL (0-0.2); Absolute Eosinophils 0.2 10^3/uL (0-0.7); Absolute Lymphocytes 1.6 10^3/uL (1.2-3.4); Absolute Monocytes 0.8 10^3/uL (0.1-0.6); Absolute Neutrophils 3.7 10^3/uL (1.4-6.5); Hemoglobin 9.1 g/dL (13.0-18.0); Mean Corpuscular Hgb 33.5 pg (27.0-31.0); Mean Corpuscular Volume 95.6 fL (80.0-94.0); Mean Platelet Volume 10.6 fL (7.4-10.4); Nucleated Red Blood Cells % 0 % (-); Platelet Count 155 10^3/uL (130-400); Red Blood Cell Count 2.72 10^6/uL (4.70-6.10); Red Cell Dist. Width 13.2 % (11.5-14.5); White Blood Cell Count 6.5 10^3/uL (4.8-10.8)
[2023-12-20 06:35] LABS: Blood Urea Nitrogen 60 mg/dl (9-20); Carbon Dioxide 23 mmol/L (22-30); Chloride 93 mmol/L (98-107); Estimated Creatinine Clearance 6 ml/min; Glucose 81 mg/dl (70-99); Magnesium 2.5 mg/dl (1.6-2.3); Potassium 4.5 mmol/L (3.5-5.1); Sodium 136 mmol/L (135-145); eGFR 5.07
[2023-12-20] MEDS: NEPHROCAP 1 CAPSULE PO (09:01)
[2023-12-20] MEDS: RENVELA 800 MG PO ×3 (09:01→21:59)
[2023-12-20] MEDS: TOPROL XL 50 MG PO ×2 (09:01→20:28)
[2023-12-20] MEDS: LASIX 80 MG PO ×2 (09:01→20:27)
[2023-12-20] MEDS: ZAROXOLYN 5 MG PO (09:01)
[2023-12-20] MEDS: APRESOLINE 25 MG PO ×2 (09:01→22:02)
[2023-12-20] MEDS: IMDUR (EXTENDED RELEASE) 30 MG PO (09:01)
--- NOTE | 2023-12-20 09:58 | CON.VAS ---
Medical History
-
Chief Complaint: LUE AVF Dysfunction
History of Present Illness:
78M LUE AVF with recent fistulogram for AVF dysfunction with Dr. Dorado on 11/25. Presents with occluded LUE AVF on thursday after dialysis. On exam no pulsatility or thrill.
Past Medical History
Past Medical History: GERD, HTN, Hypercholesterolemia and Renal Failure
Social History
Tobacco: Non-Smoker
Allergies / Home Medications
Allergy/AdvReac Type Severity Reaction Status Date / Time
naproxen Allergy Hives Verified 11/24/23 15:33
�Medication �Instructions �Recorded �Confirmed �Type
allopurinol 100 mg tablet 100 mg PO NOON Gout 10/28/21 11/26/23 History
aspirin 81 mg tablet,delayed 81 mg PO NOON Blood Clot 10/28/21 11/26/23 History
release (Krystal Low Dose Aspirin) Prevention/Tx
atorvastatin 40 mg tablet 40 mg PO QPM High cholesterol 10/28/21 11/26/23 History
furosemide 80 mg tablet 80 mg PO BID Fluid 10/28/21 11/26/23 History
retention/Swelling
isosorbide mononitrate 30 mg 30 mg PO DAILY Heart 10/28/21 11/26/23 History
tablet,extended release 24 hr disease/condition
metolazone 5 mg tablet 5 mg PO DAILY Fluid 10/28/21 11/26/23 History
retention/Swelling
mv,Yl-yxk-DY-C1-EP-3-ezh-nml-cxzw 1 cap PO BID High Cholesterol 09/29/22 11/26/23 History
oil 400 mcg-500 unit capsule
(ProRenal QD)
hydralazine 25 mg tablet 25 mg PO TID Blood Pressure 11/21/22 11/26/23 History
nabumetone 750 mg tablet 750 mg PO BID ARTHRITIS 06/15/23 11/26/23 History
calcitriol 0.5 mcg capsule 0.5 mcg PO MOWEFR RENAL 07/02/23 11/26/23 History
doxepin 6 mg tablet 6 mg PO HS PRN sleep 07/02/23 11/26/23 History
metoprolol succinate 50 mg 50 mg PO BID Blood Pressure 07/02/23 11/26/23 History
tablet,extended release 24 hr
(Toprol XL)
ropinirole 4 mg tablet 4 mg PO DAILY PARKINSONS 07/02/23 11/26/23 History
sevelamer carbonate 800 mg tablet 800 mg PO TID RENAL 07/02/23 11/26/23 History
(Renvela)
Physical Exam
Vital Signs
Temp Pulse Resp BP Pulse Ox
97.6 F 68 16 140/71 98
12/20/23 07:30 12/20/23 07:30 12/20/23 07:30 12/20/23 07:30 12/20/23 07:30
Lab Results
12/20/23 05:54
12/20/23 05:54
Physical Exam
General: Well Developed, Well Nourished and No Apparent Distress
HEENT: Normocephalic
Respiratory: Clear
Cardiac: S1/S2
GI: Soft
Musculoskeletal: Other (LUE AVF dysfunction )
Skin: Warm
Neuro: AO x 3
Assessment / Plan
-
78M with clotted LUE AVF
-NPO @ [facility]
-plan for fistulagram tomorrow AM with declot and possible TDC placement
--- NOTE | 2023-12-20 11:46 | W.PN.NEPH.PH ---
Today's Communication / Plan
-
Dialysis tomorrow after AV fistula intervention
Assessment/Plan
-
Impression:
AVF dysfunction s/p AVF PCI 12/03
ESRD MWF
Anemia
HTN
2pth
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
hyperphosphatemia
Moderate aortic stenosis
Severe TR
Pulmonary hypertension
Plan:
No acute need for dialysis today based on labs and volume status
Dialysis will be planned tomorrow after AV fistula revision and/or PCI
Maintain oral antihypertensives for blood pressure control
RILEY will be provided on dialysis for anemia
Maintain calcitriol for secondary hyperparathyroid
Maintain phosphate binders with meals already
Maintain less than 2 g sodium potassium diet and fluid restriction of 48 ounces daily
-
-
Date of Service: December 20, 2023
CC / HPI / ROS
-
Chief Complaint:
End-stage renal disease
History of Present Illness:
ESRD Thursday
Blood pressure well-controlled on antihypertensives and dry weight
Review of Systems:
Weights up
No fevers chills shortness of breath or chest pain
Labs
-
Labs:
WBC 6.5 10^3/uL (4.8-10.8) 12/20/23 05:54
RBC 2.72 10^6/uL (4.70-6.10) L 12/20/23 05:54
Hgb 9.1 g/dL (13.0-18.0) L 12/20/23 05:54
Hct 26.0 % (39.0-52.0) L 12/20/23 05:54
Plt Count 155 10^3/uL (130-400) 12/20/23 05:54
Sodium 136 mmol/L (135-145) 12/20/23 05:54
Potassium 4.5 mmol/L (3.5-5.1) 12/20/23 05:54
Chloride 93 mmol/L (98-107) L 12/20/23 05:54
Carbon Dioxide 23 mmol/L (22-30) 12/20/23 05:54
BUN 60 mg/dl (9-20) H 12/20/23 05:54
Creatinine 9.7 mg/dL (0.7-1.3) H* 12/20/23 05:54
eGFR 5.07 12/20/23 05:54
Glucose 81 mg/dl (70-99) 12/20/23 05:54
Calcium 9.0 mg/dl (8.4-10.2) 12/20/23 05:54
Albumin 4.1 g/dl (3.5-5.0) 12/19/23 09:30
Physical Exam
-
Vital Signs:
Vital Signs
Temp Pulse Resp BP Pulse Ox
97.5 F 61 16 123/65 99
12/20/23 11:15 12/20/23 11:15 12/20/23 11:15 12/20/23 11:15 12/20/23 11:15
Respiratory:: Bilateral: Coarse
Lung Excursion:: Normal
Abdomen:: Nontender and Soft
Bowel Sounds:: Normal
Extremity Edema:: None: Bilateral:
Rosario Catheter: No
Other Findings::
Left upper extremity AV fistula with no thrill or bruit
[2023-12-20] MEDS: ASPIR LOW (ENTERIC COATED) 81 MG PO (12:37)
[2023-12-20] MEDS: ZYLOPRIM 100 MG PO (12:37)
--- NOTE | 2023-12-20 13:25 | W.PN.HOSP.TC ---
Today's Communication/Plan
-
Monitor daily BMP and CBC
Plan for dialysis tomorrow after fistulogram
Assessment / Plan
Assessment / Plan
#ESRD on HD //
#LUE fistula malfunction
#Anemia of CKD on EPO
#Secondary hyperparathyroidism
-Presented with fistula malfunction, dialysis session yesterday discontinued after 1 hour
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
-Home medications include calcitriol, sevelamer, prorenal capsule; on sequential nephron blockade for diuresis
-Evaluated by nephrology, no need for urgent dialysis at this time, labs without acute indication
-Vascular surgery was consulted for intervention to correct fistula, declotting procedure planned Thursday
-Trend daily labs, plan for dialysis tomorrow after fistulogram
-Sodium, potassium, fluid restricted diet
#Resistant hypertension
-Currently on multimodal regimen, suspect this contributed to his ESRD
-Home medications include hydralazine, isosorbide, Lasix, metolazone, beta-nadege; on HD for additional volume removal
-Upon arrival blood pressure 143/91, will continue to monitor closely
-Order as needed hydralazine for SBP >190 mmHg
#HFrEF -- LVEF 25 to 30% on last TTE
#Severe pulmonary hypertension with TR
#Valvular heart disease (MR, TR, moderate )
#Status post AICD
-Unclear etiology, may be progressive hypertensive cardiomyopathy versus valvular disease versus underlying ischemia
-GDMT includes beta-nadege; no ACEi/ARB, MRA, SGLT2
-Diuretic regimen includes Lasix 80 mg twice daily, metolazone 5 mg daily
-Appears euvolemic as of now, no indication for urgent dialysis
-Will trend I's/O's, sodium and fluid restricted diet
#Bilateral shoulder osteoarthritis
-Currently on nabumetone 750 mg twice daily
#Status post recent right hip fracture
-Treated conservatively
#Gout
-Remains on allopurinol 100 mg at noon
-No signs of flare at this time
DVT prophylaxis: SCDs
Diet: 2 g sodium and potassium restricted, 48 ounce fluid restricted
CODE STATUS: Full code
Anticipated Discharge: 24 - 48 hours
Subjective/Interval History
-
Date of Service: December 20, 2023
Seen and examined at the bedside. No acute events overnight. AFVSS this morning
He denies any and all acute complaints. Feels well, has been up and moving around the room without issue.
Objective Data
-
Labs:
Laboratory Results
12/20/23
05:54
WBC 6.5
Hgb 9.1 L
Hct 26.0 L
Plt Count 155
Sodium 136
Potassium 4.5
Chloride 93 L
Carbon Dioxide 23
BUN 60 H
Creatinine 9.7 H*
Glucose 81
Calcium 9.0
Vital Signs:
Vital Signs
Temp Pulse Resp BP Pulse Ox
97.5 F 61 16 123/65 99
12/20/23 11:15 12/20/23 11:15 12/20/23 11:15 12/20/23 11:15 12/20/23 11:15
I&O
12/19/23 12/20/23 12/21/23
06:59 06:59 06:59
Intake Total 680 / 680
Balance 680 / 680
Review of Systems
-
History Source: Patient
All other systems: Reviewed and negative
Physical Exam
-
General: Well Nourished, No Apparent Distress and Comfortable
HEENT: Normocephalic, Atraumatic and Moist Mucous Membranes
Respiratory: Clear to Auscultation and Non Labored Respirations; Negative Wheezes, Rales or Rhonchi
Cardiac: Regular Rhythm, S1/S2 and Murmur; Negative Rub, JVD or Gallop
GI: Soft, Nontender, Nondistended and Normal Bowel Sounds
Musculoskeletal: No Clubbing, No Cyanosis and No Edema
Skin: Warm and Dry; Negative Rash
Neuro: AO x 3, Nonfocal/Grossly Intact and Central Nerve's Intact
Data Reviewed
-
Labs: Labs Reviewed by me and Discussed with Patient
--- NOTE | 2023-12-20 15:19 | CM ---
Met with patient at bedside; initial assessment completed
Pharmacy verified: [facility] @ [address] [facility]
Patient reported he lives with a friend in a multilevel home; 1 step to enter 14 steps to 2nd floor; railings on stairs; powder room 1st floor; 2nd floor bath has stall shower with grab bar; has shower chair if needed
PLOF: patient reported he is independent with ambulation, stairs, and ADLs; retired; drives. Goes to Hemodialysis 3 time a week @ [facility]
DME: none
SNF utilization in the past
Home Health services after procedure in the past
Friend, Mariangel, will provide transport home
Fistula malfunction; reported he is having a procedure tomorrow to repair or replace; may also need HD during this hospitalization
Agreeable to home health VN if recommended
Plan: Discharge to home when medically stable; CM will monitor for discharge needs/services
--- NOTE | 2023-12-20 15:42 | W.PN.UPDATE ---
Update Note
Progress Note Update
Spoke with Dr. Dorado who states Fistula is beyond salvage due to multiple previous fistulagrams with low chance of patency with declot. Please consult IR for tunneled catheter placement and Estrada will see patient as followup
--- NOTE | 2023-12-20 15:49 | W.PN.UPDATE ---
Update Note
Progress Note Update
Spoke with vascular surgery through believes that his LUE fistula is not salvageable. Placed a consult for interventional for dialysis catheter placement, likely to be done tomorrow
[2023-12-20] MEDS: APRESOLINE PO (16:28)
[2023-12-20] MEDS: LIPITOR 40 MG PO (17:21)
[2023-12-21] VITALS (8 sets, daily range): BP systolic 66–151; BP diastolic 61–76; BMI 26.6
[2023-12-21] MEDS: TOPROL XL PO (08:13)
[2023-12-21] MEDS: ZAROXOLYN 5 MG PO (08:15)
[2023-12-21] MEDS: APRESOLINE 25 MG PO ×3 (08:15→22:12)
[2023-12-21] MEDS: IMDUR (EXTENDED RELEASE) 30 MG PO (08:16)
[2023-12-21] MEDS: NEPHROCAP 1 CAPSULE PO (08:16)
[2023-12-21] MEDS: RENVELA 800 MG PO ×3 (08:16→22:11)
[2023-12-21] MEDS: ROCALTROL 0.5 MCG PO (08:16)
[2023-12-21] MEDS: LASIX 80 MG PO ×2 (09:19→20:07)
[2023-12-21] MEDS: FLUSH (NSS) 1 FLUSH IV (11:03)
[2023-12-21] MEDS: ANCEF 10 IV (11:03)
--- NOTE | 2023-12-21 11:26 | CM ---
Reviewed the chart notes and spoke with the patient and spouse at the bedside. The patient is scheduled to go to IR for dialysis catheter placement today. CM continues to be available to patient/family and is monitoring medical plan for needs at
discharge.
Plan: Discharge to home when medically stable.
--- NOTE | 2023-12-21 12:31 | PTCARENOTE ---
1229: Patient arrived back to 2S from IR. R tunnel catheter in place. Assessment remains unchanged from AM. Care ongoing at this time.
[2023-12-21 13:10] LABS: Hematocrit 25.2 % (39.0-52.0); Hemoglobin 8.9 g/dL (13.0-18.0)
[2023-12-21] MEDS: ASPIR LOW (ENTERIC COATED) 81 MG PO (13:21)
[2023-12-21] MEDS: ZYLOPRIM 100 MG PO (13:21)
--- NOTE | 2023-12-21 13:28 | W.PN.HOSP.TC ---
Addendum entered and electronically signed by Tulio Augustine MD 12/21/23 14:28:
78-year-old female with dialysis access malfunction
Seen during HD
Denies symptoms
I personally performed a history and physical exam of the patient and discussed management with the resident. I reviewed the resident's note and agree with the documented findings and plan of care HPI/CC except changes in my documentation
CVS: S1-S2 normal, sm at aa
Chest: CTA B/L
Abdomen: Soft, NT / Bowel sounds present
Extremities: No edema
# Left upper extremity fistula malfunction
End-stage renal disease on dialysis Thursday
Continue calcitriol, sevelamer, pro renal capsule
Vascular surgery consulted-fistula is considered to be nonsalvageable because of multiple fistulogram's
IR consulted for tunneled catheter
Vascular will place new access as outpatient
# Multidrug-resistant hypertension-continue hydralazine, Lasix, metolazone, beta-blockers and dialysis for fluid removal
# Chronic HFrEF-EF 25 to 30%
Severe pulmonary hypertension
Valvular heart disease-MR/TR/moderate
Status post AICD
Left bundle branch block
Continue beta-nadege
Not on MARITZA inhibitor/ARB/ARNI/MRA/SGLT2 inhibitor-unclear reasons
# Bilateral shoulder osteoarthritis-On nabumetone 750 mg twice daily
# Status post recent right hip fracture-Treated conservatively
# Anemia likely secondary to CKD on erythropoietin replacements as outpatient. Iron studies adequate. B 12 pending.
# Secondary hyperparathyroidism
# Gout-Remains on allopurinol 100 mg at noon
# 1.3 cm pulmonary nodule noted on CT 11/21/22-needs outpatient follow-up
# Insomnia-continue doxepin
# Restless leg syndrome-continue ropinirole
# Hyperlipidemia-continue atorvastatin
# Ex-smoker
# DVT prophylaxis-add subcutaneous heparin
# CODE STATUS-full code
D/W
D/W Vascular
D/W Renal.
D/W RN and also HD rn at bed side
If Ok with all discharge home after HD today
Part of this note was created using voice recognition system. Occasional wrong word or��sound alike� substitutions may have inadvertently occurred due to the inherent limitations of voice recognition software. If noted kindly bring it to my
attention for correction.
Original Note:
Today's Communication/Plan
-
R IJ tunneled catheter placement by IR, followed by HD and probable discharge w/ Follow up with Vascular Surgery for new fistula as OP
Assessment / Plan
Assessment / Plan
78 yo M PMHx of ESRD on hemodialysis // who presented with a malfunction of LUE fistula
##LUE fistula malfunction
#ESRD on dialysis (//)
#Anemia secondary to ESRD (on EPO)
#Secondary Hyperparathyroidism
-Presented with fistula malfunction from dialysis
-C/w Home meds calcitriol, sevelamer carbonate and ProRenal capsule; on sequential nephron blockade for diuresis
-Vascular consulted, deemed the fistula to be nonsalvageable; IR to place tunneled R IJ dialysis catheter in the AM today, followed by HD in the afternoon
-Sodium, potassium, fluid restricted diet as below; will trend CMPs as needed
#Resistant hypertension
-C/w home hydralazine, Imdur, Lasix, metolazone, Metoprolol Succinate
-Continue to monitor BP; have been stable since admission
-hydralazine as needed to maintain SBP <180 mmHg
#HFrEF (EF 25-30% on 09/01)
#Severe pulmonary HTN
#Valvular heart disease (MR, TR, mod. )
- s/p AICD placement
- On Lasix, metolazone, Metoprolol Succinate (no ACEi/ARB, SGLT2, or MAR)
- Trending I/O, sodium and fluid restricted diet as below
#Osteoarthritis B/L Shoulder
- C/w home nabumetone 750 mg BID
#Gout
- c/w home allopurinol
#Parkinson's Symptoms
- c/w home Ropinirole
#Dispo
DVT PPx: SCDs
Diet: 2g Na and K, 48 oz fluid restricted
Code Status: Full code
Anticipated Discharge: Within 24 hours
Subjective/Interval History
-
Seen in the AM, no acute complaints at this time. IR Tunneled R IJ hemodialysis catheter placement scheduled for the AM with Hemodialysis in the afternoon.
Objective Data
-
Labs:
Laboratory Results
12/21/23
12:59
Hgb 8.9 L
Hct 25.2 L
Sodium Pending
Potassium Pending
Chloride Pending
Carbon Dioxide Pending
BUN Pending
Creatinine Pending
Glucose Pending
Calcium Pending
Vital Signs:
Vital Signs
Temp Pulse Resp BP Pulse Ox
97.3 F 64 18 131/69 97
12/21/23 12:33 12/21/23 12:33 12/21/23 12:33 12/21/23 12:33 12/21/23 12:33
I&O
12/20/23 12/21/23 12/22/23
06:59 06:59 06:59
Intake Total 680 / 680 1320 / 1320
Balance 680 / 680 1320 / 1320
Review of Systems
-
History Source: Patient
All other systems: Reviewed and negative
Constitutional: Reports No Symptoms
EENT: Reports No Symptoms Reported
Respiratory: Reports No Symptoms
Cardiac: Reports No Symptoms
Abdomen/GI: Reports No Symptoms
Breast: Reports N/A
Genitourinary: Reports No Symptoms
Musculoskeletal: Reports No Symptoms
Skin: Reports No Symptoms
Neuro: Reports No Symptoms
Endocrine: Reports No Symptoms
Hematologic / Lymphatic: Reports No Symptoms
Physical Exam
-
General: Well Developed, Well Nourished, No Apparent Distress, Comfortable and Conversant
HEENT: Normocephalic, Atraumatic, Moist Mucous Membranes, Anicteric, [place] Conjunctivae and PERRLA
Respiratory: Clear to Auscultation
Cardiac: Regular Rhythm, S1/S2 and Murmur
GI: Soft, Nontender, Nondistended and Normal Bowel Sounds
Musculoskeletal: No Clubbing, No Cyanosis, No Edema and Normal Gait & Station
Neuro: Awake, Alert, Oriented, Nonfocal/Grossly Intact and No Sensory Deficits
Psych: Calm
[2023-12-21 13:45] LABS: Blood Urea Nitrogen 68 mg/dl (9-20); Carbon Dioxide 20 mmol/L (22-30); Chloride 92 mmol/L (98-107); Estimated Creatinine Clearance 5 ml/min; Glucose 85 mg/dl (70-99); Iron 55 ug/dl (49-181); Potassium 4.7 mmol/L (3.5-5.1); Sodium 134 mmol/L (135-145); eGFR 4.27
[2023-12-21 13:58] LABS: Percent Saturation 23 % (20-50); Total Iron Binding Capacity 232 ug/dl (261-462)
[2023-12-21] MEDS: RETACRIT 8000 UNITS IV (14:05)
--- NOTE | 2023-12-21 14:58 | W.PN.NEPH.HD ---
Assessment
-
pt seen during HD
vitals stable, UF to bring to EDW
CVC reversed,, will use heparin post
next HD on Thursday at the [facility]
AVF likely not salvageable per vasc, f/u vasc out pt
RILEY for anemia
d/w pt
Progress Note - Hemodialysis
-
Date of Service: December 21, 2023
Duration: 4 hours
Potassium Bath: 2
Calcium Bath: 2.5
Opti-Dialyzer: 160
Ultrafiltration: Other (3-3.5kg)
Blood Flow: 400
Dialysate Flow: 600
Heparin: no
EPO: 8000
[2023-12-21] MEDS: MANNITOL 25% 12.5 GRAMS IV (15:13)
[2023-12-21 15:30] LABS: Vitamin B12 388 pg/ml (239-931)
[2023-12-21] MEDS: HEPARIN 4000 UNITS INTRACATH (17:42)
[2023-12-21] MEDS: LIPITOR 40 MG PO (17:43)
--- NOTE | 2023-12-21 18:09 | W.DCSUMMARY ---
Discharge Summary
Discharge Data
Date of Admission: 12/19/23
Date of Discharge: 12/22/23
-
Pending Results: No
Hospital Course
Discharging Physician : Dr. Aleksandr Trevino, Dr. Tulio Augustine
Disposition : Home
Primary care physician : Luís Keane DO
Principal Discharge diagnosis : Left Upper Extremity Fistula Malfunction, ESRD, Resistant Hypertension, Chronic HFrEF, Secondary Hyperparathyroidism
Chronic Discharge diagnosis : Chronic Osteoarthritis of the BL Shoulders, Gout, Restless Leg Syndrome
Hospital Course :
Patient presented to the [facility] on 12/19/2023 after receiving scheduled Dialysis the day before (Thursday). He received only about an hour and a half of dialysis before it was determined that his fistula was malfunctioning. He came to the ED the
following day. Labs were drawn and the vascular surgery team was consulted. It was determined at that time that there was no immediate need for dialysis based on clinical signs and lab work. Due to repeated angioplasties and procedures involving the
LUE fistula, it was determined to be nonsalvageable and the decision was made to proceed with a tunneled IJ dialysis catheter which would be placed by the Interventional Radiology team. The IJ catheter placement took place on Thursday, after which the
patient received his scheduled dialysis. That night there was complaint of pain for which the patient received a single dose of 5mg Oxycodone and Tylenol. The following morning the patient reported no new pain and had no acute complaints. He was
deemed stable for discharge. A follow up appointment was scheduled with Vascular Surgery for potential placement of new fistula, for which venous mapping of the UE took place on 12/22/2023, prior to discharge. The patient was also sent home with a
script for OP Physical Therapy after an inpatient evaluation recommended he seek outpatient treatment for mobility/strength of the right leg.
Patient was discharged home in the afternoon fo 12/22/2023 with a script for PT/OT, instructions to follow up with his Primary Care provider and an appointment with Vascular Surgery scheduled for January 12 2024.
Important imaging findings :
US Pre AV Fistula Bilateral:
Patent upper extremity arterial systems. Of note, the right subclavian artery was not visualized due to overlying tunneled catheter.
Peripheral IV is present in the cephalic vein with short segment thrombus noted at the level of the catheter. Otherwise, the upper extremity basilic and cephalic veins are patent. No evidence of deep vein thrombosis.
Procedure findings :
Tunneled right internal jugular hemodialysis catheter placement (X-ray, Fluoroscopy, Ultrasound):
Successful placement tunneled right internal jugular hemodialysis catheter. Catheter ready for use.
Discharge Plan
-
Patient Disposition: Home (Routine Discharge)
Discharge Diagnosis/Procedures: AV Fistula malfunction, ESRD requiring Dialysis
Condition: Good
Diet: No restrictions
Activity: No restrictions
Driving Restrictions: As prior to admission
Bathing Restrictions: Refer to IV Nurses Instructions
Referrals:
Beny Dorado MD [Active] - 01/12/24 11:00 am (Vascular follow up)
Luís Keane DO [Family Provider] -
Prescriptions:
Continued
atorvastatin 40 mg Tablet
40 mg PO QPM
isosorbide mononitrate 30 mg Tablet Extended Release 24 Hr
30 mg PO DAILY
metolazone 5 mg Tablet
5 mg PO DAILY
Rx Instructions:
1 hour prior to lasix
allopurinol 100 mg Tablet
100 mg PO NOON
aspirin [Krystal Low Dose Aspirin] 81 mg Tablet,Delayed Release (Dr/Ec)
81 mg PO NOON
furosemide 80 mg Tablet
80 mg PO BID
ProRenal QD 400-500 mcg-unit capsule
1 cap PO BID
hydralazine 25 mg Tablet
25 mg PO TID
nabumetone 750 mg Tablet
750 mg PO BID
metoprolol succinate [Toprol XL] 50 mg Tablet Extended Release 24 Hr
50 mg PO BID
calcitriol 0.5 mcg Capsule
0.5 mcg PO MOWEFR
ropinirole 4 mg Tablet
4 mg PO DAILY
sevelamer carbonate [Renvela] 800 mg Tablet
800 mg PO TID
doxepin 6 mg Tablet
6 mg PO HS PRN (Reason: sleep)
Discharge Orders:
Discharge Patient (As Directed); Ordered 12/22/23
Ordered By: Aleksandr Trevino
Discharge Date and Time
Discharge Date/Time: 12/22/23 15:16
Print Language: SUDANESE
[2023-12-21] MEDS: ROXICODONE 5 MG PO (18:29)
[2023-12-21] MEDS: TOPROL XL 50 MG PO (20:08)
[2023-12-21] MEDS: REQUIP 4 MG PO (22:12)
[2023-12-21] MEDS: TYLENOL 650 MG PO (22:21)
[2023-12-22 03:42] VITALS: BP 144/69
[2023-12-22 05:45] VITALS: BMI 25.3
[2023-12-22] MEDS: ZAROXOLYN 5 MG PO (07:30)
[2023-12-22] MEDS: APRESOLINE 25 MG PO (07:30)
[2023-12-22] MEDS: IMDUR (EXTENDED RELEASE) 30 MG PO (07:30)
[2023-12-22] MEDS: TOPROL XL 50 MG PO (07:30)
[2023-12-22] MEDS: RENVELA 800 MG PO (07:30)
[2023-12-22] MEDS: NEPHROCAP 1 CAPSULE PO (07:30)
[2023-12-22 07:51] VITALS: BP 139/71
[2023-12-22] MEDS: LASIX 80 MG PO (08:38)
[2023-12-22 09:24] VITALS: BP 116/73; PULSE 68
--- NOTE | 2023-12-22 09:30 | PTOTSP ---
The patient is independent with ambulation and elevations, offering no concerns regarding his mobility upon return home. Patient is very interested in working with Outpatient PT to improve right leg strength (will need script written for Outpatient
PT). No acute PT needs at this time, will sign off.
--- NOTE | 2023-12-22 09:49 | W.PN.HOSP.TC ---
Addendum entered and electronically signed by Tulio Augustine MD 12/22/23 14:20:
I personally performed a history and physical exam of the patient and discussed management with the resident. I reviewed the resident's note and agree with the documented findings and plan of care HPI/CC,except changes in my documentation
CVS: S1-S2 normal, sm at aa
Chest: CTA B/L, chest wall PC
Abdomen: Soft, NT / Bowel sounds present
Extremities: No edema
# Left upper extremity fistula malfunction
End-stage renal disease on dialysis Thursday
Continue calcitriol, sevelamer, pro renal capsule
Vascular surgery consulted-fistula is considered to be nonsalvageable because of multiple fistulogram's
IR placed tunneled catheter
Vascular will place new access as outpatient
Mapping USS prior to discharge
# Multidrug-resistant hypertension-continue hydralazine, Lasix, metolazone, beta-blockers and dialysis for fluid removal
# Chronic HFrEF-EF 25 to 30%
Severe pulmonary hypertension
Valvular heart disease-MR/TR/moderate
Status post AICD
Left bundle branch block
Continue beta-nadege
Not on MARITZA inhibitor/ARB/ARNI/MRA/SGLT2 inhibitor-unclear reasons
# Bilateral shoulder osteoarthritis-On nabumetone 750 mg twice daily
# Status post recent right hip fracture-Treated conservatively
# Anemia likely secondary to CKD on erythropoietin replacements as outpatient. Iron studies adequate. B 12 low normal , replace.
# Secondary hyperparathyroidism
# Gout-Remains on allopurinol 100 mg at noon
# 1.3 cm pulmonary nodule noted on CT 11/21/22-needs outpatient follow-up
# Insomnia-continue doxepin
# Restless leg syndrome-continue ropinirole
# Hyperlipidemia-continue atorvastatin
# Ex-smoker
# DVT prophylaxis- subcutaneous heparin
# CODE STATUS-full code
D/W at bed side
D/W Renal.
Discharge planning time 38 min
Original Note:
Today's Communication/Plan
-
Patient will obtain Venous mapping US of the UE prior to discharge
Assessment / Plan
Assessment / Plan
78 yo M PMHx of ESRD on hemodialysis // who presented with a malfunction of LUE fistula
##LUE fistula malfunction; s/p R IJ Tunneled Catheter Placement
#ESRD on dialysis (//)
#Anemia secondary to ESRD (on EPO)
#Secondary Hyperparathyroidism
-Presented with fistula malfunction from dialysis
-C/w Home meds calcitriol, sevelamer carbonate and ProRenal capsule; on sequential nephron blockade for diuresis
-Vascular consulted, deemed the fistula to be nonsalvageable; IR placed tunneled R IJ dialysis catheter. Patient has a f/u appointment scheduled and will obtain Venous mapping US of UE today before leaving.
- IR to change dressing for catheter, after which the patient is stable for discharge.
#Resistant hypertension
- C/w home hydralazine, Imdur, Lasix, metolazone, Metoprolol Succinate
- Bps have been stable since admission, no need for medication changes at this time.
#HFrEF (EF 25-30% on 09/01)
#Severe pulmonary HTN
#Valvular heart disease (MR, TR, mod. )
- s/p AICD placement
- On Lasix, metolazone, Metoprolol Succinate (no ACEi/ARB, SGLT2, or MAR)
- Trending I/O, sodium and fluid restricted diet as below
#Osteoarthritis B/L Shoulder
- C/w home nabumetone 750 mg BID
#Gout
- c/w home allopurinol
#Parkinson's Symptoms
- c/w home Ropinirole
#Dispo
DVT PPx: SCDs
Diet: 2g Na and K, 48 oz fluid restricted
Code Status: Full code
Anticipated Discharge: Today
Subjective/Interval History
-
Seen in the AM. patient's pain post IJ catheter insertion was managed well overnight with one dose of 5mg Oxy. he slept well and has no acute complaints this morning.
Objective Data
-
Vital Signs:
Vital Signs
Temp Pulse Resp BP Pulse Ox
97.5 F 65 19 121/68 100
12/22/23 07:51 12/22/23 08:38 12/22/23 07:51 12/22/23 08:38 12/22/23 07:51
I&O
12/21/23 12/22/23 12/23/23
06:59 06:59 06:59
Intake Total 1320 / 1320 1200 / 1200
Balance 1320 / 1320 1200 / 1200
Review of Systems
-
History Source: Patient
All other systems: Reviewed and negative
Constitutional: Reports No Symptoms
EENT: Reports No Symptoms Reported
Respiratory: Reports No Symptoms
Cardiac: Reports No Symptoms
Abdomen/GI: Reports No Symptoms
Breast: Reports N/A
Genitourinary: Reports No Symptoms
Musculoskeletal: Reports No Symptoms
Skin: Reports Itching (At the site of catheter placement)
Neuro: Reports No Symptoms
Endocrine: Reports No Symptoms
Physical Exam
-
General: Well Developed, Well Nourished, No Apparent Distress and Conversant
HEENT: Normocephalic, Atraumatic, Moist Mucous Membranes, Anicteric, [place] Conjunctivae and PERRLA
Respiratory: Clear to Auscultation
Cardiac: Regular Rhythm and S1/S2
Breast: N/A
GI: Soft, Nontender, Nondistended and Normal Bowel Sounds
Musculoskeletal: No Clubbing, No Cyanosis and No Edema
Skin: IV Access / Catheter Site (Tunneled R IJ Dialysis Catheter, covered with some serosanguinous drainage, no discharge, fluctuance or erythema )
Neuro: Awake, Alert, Oriented, No Motor Deficits and Nonfocal/Grossly Intact
--- NOTE | 2023-12-22 09:58 | CM ---
Reviewed the chart notes. IMM reviewed. Patient on HD. Patient to resume HD at [facility]. CM continues to be available to patient/family and is monitoring medical plan for needs at discharge.
Plan: Discharge to home when medically stable. No anticipated needs.
[2023-12-22 11:08] VITALS: BP 130/66
[2023-12-22] MEDS: ZYLOPRIM 100 MG PO (11:25)
[2023-12-22] MEDS: ASPIR LOW (ENTERIC COATED) 81 MG PO (11:25)
[2023-12-22 15:06] VITALS: BP 148/80
--- NOTE | 2023-12-22 15:23 | W.PN.NEPH.PH ---
Today's Communication / Plan
-
d/c today
Assessment/Plan
-
Impression:
AVF dysfunction s/p AVF PCI 12/03
ESRD MWF
Anemia
HTN
2pth
FRONT DESK
hyperphosphatemia
Moderate aortic stenosis
Severe TR
Pulmonary hypertension
Plan:
AVF not salvageable, vasc f/u out pt
CVC functions fine, for d/c today
return to [facility] tomorrow
hemodynamically stable
d/w
-
-
Date of Service: December 22, 2023
CC / HPI / ROS
-
Chief Complaint:
End-stage renal disease
History of Present Illness:
ESRD Thursday
Blood pressure well-controlled on antihypertensives
wt better post HD 12/20
Review of Systems:
No fevers chills shortness of breath or chest pain
feels at baseline
Labs
-
Labs:
WBC 6.5 10^3/uL (4.8-10.8) 12/20/23 05:54
RBC 2.72 10^6/uL (4.70-6.10) L 12/20/23 05:54
Hgb 8.9 g/dL (13.0-18.0) L 12/21/23 12:59
Hct 25.2 % (39.0-52.0) L 12/21/23 12:59
Plt Count 155 10^3/uL (130-400) 12/20/23 05:54
Sodium 134 mmol/L (135-145) L 12/21/23 12:59
Potassium 4.7 mmol/L (3.5-5.1) 12/21/23 12:59
Chloride 92 mmol/L (98-107) L 12/21/23 12:59
Carbon Dioxide 20 mmol/L (22-30) L 12/21/23 12:59
BUN 68 mg/dl (9-20) H 12/21/23 12:59
Creatinine 11.2 mg/dL (0.7-1.3) H* 12/21/23 12:59
eGFR 4.27 12/21/23 12:59
Glucose 85 mg/dl (70-99) 12/21/23 12:59
Calcium 9.0 mg/dl (8.4-10.2) 12/21/23 12:59
Albumin 4.1 g/dl (3.5-5.0) 12/19/23 09:30
Physical Exam
-
Vital Signs:
Vital Signs
Temp Pulse Resp BP Pulse Ox
97.5 F 74 16 148/80 98
12/22/23 15:06 12/22/23 15:06 12/22/23 15:06 12/22/23 15:06 12/22/23 15:06
Cardiovascular:: Regular rate and rhythm
Respiratory:: Bilateral: CTA
Lung Excursion:: Normal
Extremity Edema:: None: Bilateral:
Rosario Catheter: No
== END 2023-12-22 15:16 | disposition home or self-care (01) | DRG 314 ==
LOC: 2 SOUTH 14:14
PROVIDERS: Internal Medicine; Physician Assistant; Radiology Vascular & Interventional Radiology; ADMITTING PHYSICIAN Internal Medicine; ATTENDING PHYSICIAN Hospitalist; CONSULT PHYSICIAN Specialist; EMERGENCY PHYSICIAN Student in an Organized Health Care Education/Training Program; FAMILY PHYSICIAN Internal Medicine; OTHER PHYSICIAN Surgery Vascular Surgery
PROC: 0JH60XZ Insertion of Tunneled Vascular Access Device into Chest Subcutaneous Tissue and Fascia, Open Approach (ICD-10-PCS; 2023-12-21)
PROC: 5A1D70Z Performance of Urinary Filtration, Intermittent, Less than 6 Hours Per Day (ICD-10-PCS; 2023-12-21)
PROC: 02H633Z Insertion of Infusion Device into Right Atrium, Percutaneous Approach (ICD-10-PCS; 2023-12-21)
DX: T82.510A Breakdown (mechanical) of surgically created arteriovenous fistula, initial encounter (principal); N18.6 End stage renal disease; I13.2 Hypertensive heart and chronic kidney disease with heart failure and with stage 5 chronic kidney disease, or end stage renal disease; I50.22 Chronic systolic (congestive) heart failure; I42.9 Cardiomyopathy, unspecified; N25.81 Secondary hyperparathyroidism of renal origin; I27.20 Pulmonary hypertension, unspecified; D63.1 Anemia in chronic kidney disease; I08.2 Rheumatic disorders of both aortic and tricuspid valves; G20.A1 Parkinson's disease without dyskinesia, without mention of fluctuations; Z99.2 Dependence on renal dialysis; E83.39 Other disorders of phosphorus metabolism; Y71.2 Prosthetic and other implants, materials and accessory cardiovascular devices associated with adverse incidents; I1A.0 Resistant hypertension; E78.00 Pure hypercholesterolemia, unspecified; G89.29 Other chronic pain; I25.10 Atherosclerotic heart disease of native coronary artery without angina pectoris; Z95.810 Presence of automatic (implantable) cardiac defibrillator; K21.9 Gastro-esophageal reflux disease without esophagitis; M25.561 Pain in right knee; R53.81 Other malaise; M10.9 Gout, unspecified; M19.011 Primary osteoarthritis, right shoulder; M19.012 Primary osteoarthritis, left shoulder; M89.8X9 Other specified disorders of bone, unspecified site; K40.90 Unilateral inguinal hernia, without obstruction or gangrene, not specified as recurrent; Z77.098 Contact with and (suspected) exposure to other hazardous, chiefly nonmedicinal, chemicals; Z79.1 Long term (current) use of non-steroidal anti-inflammatories (NSAID); Z79.899 Other long term (current) drug therapy; Z87.891 Personal history of nicotine dependence; Z86.79 Personal history of other diseases of the circulatory system; Z87.81 Personal history of (healed) traumatic fracture; Z88.6 Allergy status to analgesic agent
CPT/HCPCS: 36558; 76937; 77001; 80048; 80053; 82607; 82728; 83540; 83550; 83735; 85014; 85018; 85025; 85610; 85730; 93985; 97161; 99152; 99153; 99285; C1750; G0257; Q5106

== ENCOUNTER 2023-12-23 12:45 | Emergency (ER) | payer OTHER, SELFPAY ==
[2023-12-23 12:47] VITALS: BP 108/57
--- NOTE | 2023-12-23 13:28 | ED.GENMED ---
History of Present Illness
General
Chief Complaint: Vascular Access Problem
Source: patient, records and spouse
Exam Limitations: none
Time Seen by Provider: 12/23/23 13:04
Nursing documentation reviewed up to this point in time: agreed with
History of Present Illness
History of Present Illness:
Patient is a 78-year-old male who presents with bleeding from his dialysis catheter that is in his right internal jugular that was placed on 12/20. Patient is doing fine. Patient has dialysis at 3 PM today. Patient denies any real complaints other
than the bleeding. Patient was dialyzed on Thursday right after the procedure for 4-1/2 hours. Patient denies any increased weakness or lightheadedness, chest pain or shortness of breath.
Past History
Past History
ED Past Medical History: CHF, HTN, Renal failure, Valvular disease and Other (Chronic renal insufficiency)
ED Past Surgical History: Cardiac, Orthopedic, Tonsilectomy and Other
Social History
Tobacco: Non-smoker
Alcohol: Occasional
Drug: None
Personal:
Living: with family
Employment: Retired
Family History
Family History: Negative Diabetes, Hypertension or CAD
Review of Systems
Review of Systems
All Other Systems: Not applicable
Phy Exam
Physical Exam
Physical Exam:
Physical Exam
General: No apparent distress, alert and appropriate, well nourished, well hydrated
HENT: Normocephalic, supple
Eyes: Clear sclera, conjuctiva without injection
Lungs: No respiratory distress, no stridor, chest wall symmetrical and with new dialysis catheter tunneled on the right with dried, clotted blood from the site but not actively bleeding now
Neuro: Alert and oriented x 3, CN II - XII intact, no motor focality, no cerebellar dysfunction
Skin: no rash
Psychiatric: well kept. interactive and cooperative
Extremities: No edema, cyanosis, tenderness. Old AV fistula in the left upper arm with no thrill which is old.
Course
Vital Signs
Initial and Last Documented VS:
Initial Vital Signs
Temp Pulse Resp BP Pulse Ox
98.2 F 80 16 108/57 99
12/23/23 12:47 12/23/23 12:47 12/23/23 12:47 12/23/23 12:47 12/23/23 12:47
Last Documented Vital Signs
Temp Pulse Resp BP Pulse Ox
98.2 F 80 16 108/57 99
12/23/23 12:47 12/23/23 12:47 12/23/23 12:47 12/23/23 12:47 12/23/23 12:47
*Pulse Oximetry
Patient hypoxic: no
*EKG
Interpreted by ED Provider?: NA
*Medical Coordinator Pesticide Use Interpretation
Rate: Medical Coordinator Pesticide Use- N/A
*Critical Care Note
Total Time (30-74mins, 75-104mins- exclusive of procedures): Not Applicable
Update Note
Update Note:
I texted with both vascular and IR and will follow-up with the patient but patient okay for dialysis.
ED Attending Note
-
Portions of this chart may have been created with voice recognition software.� Occasional wrong word or��sound alike� substitutions may have occurred due to the inherent limitations of voice recognition software.
Discharge Plan
Departure
Patient Disposition: Home (Routine Discharge)
Date of Disposition: 12/23/23
Time of Disposition: 13:45
Patient with high blood pressure during this ER visit?: No
Condition: Good
Covid-19: Not Applicable
Discharge Problem:
ESRD (end stage renal disease) on dialysis
Instructions: How to Care for a Portacath
Prescriptions:
No Action
atorvastatin 40 mg Tablet
40 mg PO QPM
isosorbide mononitrate 30 mg Tablet Extended Release 24 Hr
30 mg PO DAILY
metolazone 5 mg Tablet
5 mg PO DAILY
Rx Instructions:
1 hour prior to lasix
allopurinol 100 mg Tablet
100 mg PO NOON
aspirin [Krystal Low Dose Aspirin] 81 mg Tablet,Delayed Release (Dr/Ec)
81 mg PO NOON
furosemide 80 mg Tablet
80 mg PO BID
ProRenal QD 400-500 mcg-unit capsule
1 cap PO BID
hydralazine 25 mg Tablet
25 mg PO TID
nabumetone 750 mg Tablet
750 mg PO BID
metoprolol succinate [Toprol XL] 50 mg Tablet Extended Release 24 Hr
50 mg PO BID
calcitriol 0.5 mcg Capsule
0.5 mcg PO MOWEFR
ropinirole 4 mg Tablet
4 mg PO DAILY
sevelamer carbonate [Renvela] 800 mg Tablet
800 mg PO TID
doxepin 6 mg Tablet
6 mg PO HS PRN (Reason: sleep)
Referrals:
Luís Keane DO [Family Provider] - As needed
Activity Restrictions/Additional Instructions:
Continue present medications and therapy.
Interventions
Interventions:
*Risk Screen - Suicide Last Done: 12/23/23 12:47
Discharge Date and Time
Print Language: DANISH
== END 2023-12-23 14:35 | disposition home or self-care (01) ==
LOC: EMR 12:45
PROVIDERS: EMERGENCY PHYSICIAN Emergency Medicine; FAMILY PHYSICIAN Internal Medicine
DX: T82.838A Hemorrhage due to vascular prosthetic devices, implants and grafts, initial encounter (principal); Y84.1 Kidney dialysis as the cause of abnormal reaction of the patient, or of later complication, without mention of misadventure at the time of the procedure; I13.2 Hypertensive heart and chronic kidney disease with heart failure and with stage 5 chronic kidney disease, or end stage renal disease; I50.9 Heart failure, unspecified; N18.6 End stage renal disease; Z99.2 Dependence on renal dialysis; Z88.6 Allergy status to analgesic agent
CPT/HCPCS: 99281

== ENCOUNTER 2023-12-25 19:40 | Emergency (ER) | payer OTHER, SELFPAY ==
[2023-12-25 19:43] VITALS: BMI 23.5
[2023-12-25 19:47] VITALS: BP 101/55
[2023-12-25 20:00] VITALS: BP 95/44
[2023-12-25 20:04] LABS: % Basophils 0.8 % (0-2); % Eosinophils 2.7 % (0-6); % Immature Granulocytes 0.2 % (0-0.5); % Lymphocytes 23.1 % (20.5-51.1); % Monocytes 15.1 % (1.7-9.3); % Neutrophils 58.1 % (42.2-75.2); Absolute Basophils 0.1 10^3/uL (0-0.2); Absolute Eosinophils 0.2 10^3/uL (0-0.7); Absolute Lymphocytes 1.4 10^3/uL (1.2-3.4); Absolute Monocytes 0.9 10^3/uL (0.1-0.6); Absolute Neutrophils 3.5 10^3/uL (1.4-6.5); Hematocrit 30.1 % (39.0-52.0); Hemoglobin 10.5 g/dL (13.0-18.0); Mean Corp Hgb Conc. 34.9 g/dL (33.0-37.0); Mean Corpuscular Hgb 33.1 pg (27.0-31.0); Mean Platelet Volume 10.8 fL (7.4-10.4); Nucleated Red Blood Cells % 0 % (-); Platelet Count 229 10^3/uL (130-400); Red Blood Cell Count 3.17 10^6/uL (4.70-6.10); Red Cell Dist. Width 13.2 % (11.5-14.5)
--- NOTE | 2023-12-25 20:11 | EDRN ---
Pt had new dialysis catheter placed 4 days ago. Pt had dialysis on Thu and had bleeding so he came to the ED. Bleeding had stopped and dressing changed and pt discharged. Pt had dialysis done today and there was more blood from the catheter and
pt was told he had to go to the ED. Pt also felt dizzy. No cp, sob, fever/chills/cough, abd pain, n/v.
[2023-12-25 20:17] LABS: ALT (SGPT) < 10 U/L (0-50); AST (SGOT) 26 U/L (17-59); Albumin 4.2 g/dl (3.5-5.0); Alkaline Phosphatase 120 U/L (38-126); Blood Urea Nitrogen 13 mg/dl (9-20); Calcium 9.1 mg/dl (8.4-10.2); Carbon Dioxide 35 mmol/L (22-30); Chloride 92 mmol/L (98-107); Estimated Creatinine Clearance 21 ml/min; Glucose 209 mg/dl (70-99); Potassium 3.6 mmol/L (3.5-5.1); Sodium 137 mmol/L (135-145); Total Bilirubin 0.6 mg/dl (0.2-1.3); Total Protein 6.7 g/dl (6.3-8.2)
[2023-12-25 20:22] LABS: Troponin I 0.034 ng/ml
--- NOTE | 2023-12-25 20:32 | ED.GENMED ---
History of Present Illness
General
Chief Complaint: Dizziness
Source: patient and family
Exam Limitations: none
Time Seen by Provider: 12/25/23 20:05
Nursing documentation reviewed up to this point in time: agreed with
History of Present Illness
History of Present Illness:
78-year-old male ESRD Thursday had a left upper extremity fistula for a few years recently failed temporary catheter placed earlier this week in his right chest has had some bleeding at dialysis for past few sessions blood quite a bit
today apparently so much that the staff would let him drive home he felt dizzy prior by EMS still losing a bit, but feeling better no chest pain no shortness of breath no syncope he got most of his session reportedly
Past History
Past History
ED Past Medical History: CHF, HTN, Renal failure, Valvular disease and Other (Chronic renal insufficiency)
ED Past Surgical History: Cardiac, Orthopedic, Tonsilectomy and Other
Social History
Tobacco: Non-smoker
Alcohol: Occasional
Drug: None
Personal:
Living: with family
Employment: Retired
Family History
Family History: Negative Diabetes, Hypertension or CAD
Review of Systems
Review of Systems
All Other Systems: Not applicable
Respiratory: Reports no symptoms
Cardiac: Reports no symptoms
ABD/GI: Denies abdominal pain
Neurological: Reports dizzy
Phy Exam
Physical Exam
Physical Exam:
Physical Exam
General: no apparent distress, not acutely ill
Neck: Slight oozing from tunneled catheter in his right chest wall
Heart: Regular
Lungs: no acute respiratory distress. clear bilaterally
Neuro: alert and oriented. no focal neurological deficits
Skin: no rash
Psychiatric: well kept. interactive and cooperative
Extremities: no edema.
Course
Orders/Labs/Results
Orders:
Orders
12/25/23 19:47
Electrocardiogram (*1) Urgent
Reason for Study: Chest Pain
Cardiac Monitoring- Treatment ONCE
EKG- Treatment ONCE
IV Insert/Care/Rem.- Treatment PRN
O2 Therapy [RESP] Urgent
Titrate/Wean O2 to maintain O2 sat greater than (%): 90
Special Instructions: Maintain sats >/=90%
Pulse Ox/spot Check [RESP] Urgent
Quantity: 1
Special Instructions: ON ROOM AIR
12/25/23 19:49
Complete Blood Count/With Diff Urgent
Comprehensive Metabolic Panel Urgent
Troponin I Urgent
12/25/23 20:30
PTT Urgent
Prothrombin Time Urgent
Abnormal Lab Results
12/25/23 12/25/23
19:49 20:30
RBC 3.17 L 10^6/uL
(4.70-6.10)
Hgb 10.5 L g/dL
(13.0-18.0)
Hct 30.1 L %
(39.0-52.0)
MCV 95.0 H fL
(80.0-94.0)
MCH 33.1 H pg
(27.0-31.0)
MPV 10.8 H fL
(7.4-10.4)
Absolute Monos (auto) 0.9 H 10^3/uL
(0.1-0.6)
Monocytes % 15.1 H %
(1.7-9.3)
APTT 40.4 H Sec
(23.4-35.0)
Chloride 92 L mmol/L
(98-107)
Carbon Dioxide 35 H mmol/L
(22-30)
Creatinine 2.9 H mg/dL
(0.7-1.3)
Glucose 209 H mg/dl
(70-99)
12/25/23 19:49
12/25/23 19:49
Vital Signs
Initial and Last Documented VS:
Initial Vital Signs
Temp Pulse Resp BP Pulse Ox
97.8 F 92 20 101/55 98
12/25/23 19:47 12/25/23 19:47 12/25/23 19:47 12/25/23 19:47 12/25/23 19:47
Last Documented Vital Signs
Temp Pulse Resp BP Pulse Ox
97.8 F 71 24 113/61 98
12/25/23 19:47 12/25/23 22:00 12/25/23 22:00 12/25/23 22:00 12/25/23 19:47
Procedures
Other
Indication for procedure:: Oozing from dialysis catheter
Procedure completed by: Qing
Consent form signed: No
Additional Procedure:
Sterile gloves direct pressure, Surgicel bleeding controlled
2 3-0 nylon sutures placed
MDM/Problems Addressed
Differential Diagnosis Includes:
Anemia electrolyte abnormality surgical site bleeding coagulopathy
MDM/Problems Addressed:
Bleeding from the surgical site
Chronic conditions affecting care:
ESRD
Acute Exacerbation and/or Progression of Chronic Illness:
ESRD
*Critical Care Note
Total Time (30-74mins, 75-104mins- exclusive of procedures): Not Applicable
Update Note
Update Note:
Update still losing, briefly reviewed with IR, recommend Surgicel if unsuccessful [id number] suture
ED Attending Note
-
Portions of this chart may have been created with voice recognition software.� Occasional wrong word or��sound alike� substitutions may have occurred due to the inherent limitations of voice recognition software.
Discharge Plan
Departure
Patient Disposition: Home (Routine Discharge)
Date of Disposition: 12/25/23
Time of Disposition: 22:38
Patient with high blood pressure during this ER visit?: No
Condition: Good
Discharge Problem:
ESRD (end stage renal disease), ESRD (end stage renal disease) on dialysis
Instructions: Dizziness
Prescriptions:
No Action
atorvastatin 40 mg Tablet
40 mg PO QPM
isosorbide mononitrate 30 mg Tablet Extended Release 24 Hr
30 mg PO DAILY
metolazone 5 mg Tablet
5 mg PO DAILY
Rx Instructions:
1 hour prior to lasix
allopurinol 100 mg Tablet
100 mg PO NOON
furosemide 80 mg Tablet
80 mg PO BID
ProRenal QD 400-500 mcg-unit capsule
1 cap PO BID
hydralazine 25 mg Tablet
25 mg PO BID
nabumetone 750 mg Tablet
750 mg PO BID
metoprolol succinate [Toprol XL] 50 mg Tablet Extended Release 24 Hr
50 mg PO BID
calcitriol 0.5 mcg Capsule
0.5 mcg PO MOWEFR
ropinirole 4 mg Tablet
4 mg PO DAILY
sevelamer carbonate [Renvela] 800 mg Tablet
800 mg PO .SIXTIMESDAILY
doxepin 6 mg Tablet
6 mg PO HS PRN (Reason: sleep)
Referrals:
Luís Keane DO [Family Provider] -
Activity Restrictions/Additional Instructions:
Follow-up with dialysis as scheduled
Interventions
Interventions:
*Risk Screen - Suicide Last Done: 12/25/23 19:43
*General Assessment Last Done: 12/25/23 19:43
*Neglect/Abuse Screening Last Done: 12/25/23 19:43
ED- Fall Risk Assessment Last Done: 12/25/23 20:16
ED- Neurological Assessment Last Done: 12/25/23 20:35
ED- Cardiac Assessment Last Done: 12/25/23 20:35
Discharge Date and Time
Print Language: CANADIAN
--- NOTE | 2023-12-25 20:42 | EDRN ---
Cleaned dried blood from pt's R ACW. While Dr Longo speaking with pt, this RN removed dressing over pt's dialysis catheter. Dressings soaked with blood. Oozing of blood noted underneath catheters from insertion site. Dressing applied with drain
sponge, 4x4s and paper tape.
[2023-12-25 20:49] LABS: INR 1.02; PT 13.2 Sec (11.4-14.6)
[2023-12-25 20:52] LABS: APTT 40.4 Sec (23.4-35.0)
[2023-12-25 21:00] VITALS: BP 104/58
[2023-12-25 22:00] VITALS: BP 113/61
--- NOTE | 2023-12-25 23:38 | EDRN ---
No bleeding from dialysis site - large pieces of surgifoam applied underneath catheters and over them by Dr Longo. This RN cleaned dried blood from pt's chest and R armpit. Applied 4x4s and large tegaderm on top. Pt given paper scrub top.
== END 2023-12-25 23:48 | disposition home or self-care (01) ==
LOC: EMR 19:40
PROVIDERS: Emergency Medicine; EMERGENCY PHYSICIAN Emergency Medicine; FAMILY PHYSICIAN Internal Medicine
DX: N18.6 End stage renal disease (principal); I13.0 Hypertensive heart and chronic kidney disease with heart failure and stage 1 through stage 4 chronic kidney disease, or unspecified chronic kidney disease; I50.9 Heart failure, unspecified; I38 Endocarditis, valve unspecified; Z99.2 Dependence on renal dialysis
CPT/HCPCS: 99283; 80053; 84484; 85025; 85610; 85730; 93005

== ENCOUNTER 2024-02-11 07:50 | Day surgery (SDC) | payer OTHER, SELFPAY ==
[2024-02-11] VITALS (12 sets, daily range): BP systolic 107–135; BP diastolic 60–80; BMI 25.8
[2024-02-11] MEDS: PERIDEX 0.12% ORAL RINSE 15 ML PO (08:15)
[2024-02-11] MEDS: BACTROBAN NASAL 1 GRAM NASAL (08:15)
[2024-02-11 08:45] LABS: Hematocrit 42.5 % (39.0-52.0); Hemoglobin 14.3 g/dL (13.0-18.0); Mean Corp Hgb Conc. 33.6 g/dL (33.0-37.0); Mean Corpuscular Hgb 31.8 pg (27.0-31.0); Mean Corpuscular Volume 94.4 fL (80.0-94.0); Mean Platelet Volume 10.9 fL (7.4-10.4); Platelet Count 197 10^3/uL (130-400); Red Cell Dist. Width 13.4 % (11.5-14.5); White Blood Cell Count 7.5 10^3/uL (4.8-10.8)
[2024-02-11 08:49] LABS: INR 0.97; PT 12.9 Sec (11.4-14.6)
[2024-02-11 08:50] LABS: APTT 32.7 Sec (23.4-35.0)
[2024-02-11 09:38] LABS: Blood Urea Nitrogen 21 mg/dl (9-20); Calcium 9.8 mg/dl (8.4-10.2); Carbon Dioxide 28 mmol/L (22-30); Chloride 92 mmol/L (98-107); Estimated Creatinine Clearance 12 ml/min; Glucose 90 mg/dl (70-99); Potassium 4.3 mmol/L (3.5-5.1); Sodium 139 mmol/L (135-145)
--- NOTE | 2024-02-11 11:59 | W.SUR.POST ---
Surgical Immediate Post Op
Note
Pre Op Diagnosis: ESRD
Post Op Diagnosis: ESRD
Procedure Performed: RLE brachiocephalic AV fistula creation
Primary Surgeon: Estrada
Assist: Thomas NAJERA
Anesthesia: general
Estimated Blood Loss: 3cc
Fluids: see anesthesia flow sheet
Drains/Shunts: none
Specimens/Cultures: none
Doppler/Duplex/Angio (Y/N): Y
Complications: None
Operative Findings: +thrill, doppler radial and ulnar
--- NOTE | 2024-02-11 13:18 | OR.RPT ---
Operative Report
Operative Report
PROCEDURE DATE: 02/11/2024
Preoperative diagnosis: End-stage renal disease on hemodialysis
Postoperative diagnosis: Same
Procedure: Left upper extremity brachiocephalic arteriovenous fistula creation
Surgeon: Estrada
Topographic Computator: Thomas, required for all aspects of procedure including assistance with traction/countertraction, following a suture line, assistance with closure.
Complications: None
Anesthesia: General
Indications for procedure:
End-stage renal disease on hemodialysis. Failed left upper extremity access. Discussed risk/benefits/alternatives of right upper extremity AV access creation. Patient understood all wished to proceed.
Description of procedure:
Patient was identified brought to the operating room placed on the table in supine position. After the induction of anesthesia, I venous. Wrist/forearm cephalic vein was reasonable, did have multiple branches no. However, the radial artery
appeared very small and somewhat diseased/atherosclerotic on ultrasound. Therefore I felt better not to do a wrist radiocephalic fistula. Upper arm cephalic vein appeared reasonable. After the adequate administration of anesthesia and
perioperative antibiotics, he was prepped and draped in the standard surgical fashion. A standard preoperative timeout was undertaken and everybody was in agreement the plan. A transverse incision was made in the proximal volar aspect of the
forearm just distal to the antecubital fossa. This was carried through skin subcutaneous tissue. The antecubital extension of the cephalic vein was identified and carefully dissected away from surrounding structures and great care to avoid any
injury to structures. Any branches were ligated between silk ties and then divided. The vein appeared a reasonable size, slightly scarred secondary to untreated prior. As such I was able to mobilize a suitable length of cephalic vein. Once I had
done this I then deepened my dissection in the medial aspect of the incision site through the fascial layer. The brachial artery was carefully identified and carefully dissected away from surrounding structures take great care to avoid injury to
structures. I passed a vessel loop around proximally and distally. Of note, the artery was soft to palpation and of reasonable caliber. Next I gave the patient 3000 units of intravenous heparin. I then ligated the cephalic vein distally in my
field with a silk tie and a clip. I then transected it. I distended under heparinized saline. It distended very well. I marked the anterior surface under distention to avoid any kinking or twisting. The vein was suitable size but just to be
sure I ran a 3 mm dilator through which passed without any difficulty whatsoever. Next I tightened my double looped Vesseloops on the artery proximally and distally. I then made an arteriotomy with 11 blade and extended using a Cantu scissor. I
spatulated the cephalic vein and sewed an end to side anastomosis using a running 6-0 Prolene suture (four-quadrant technique). Prior to completing and tying down my suture line I backbled and forebled the andreafski artery. Next I released my bulldog
clamp on the vein and then released my Vesseloops on the artery. There was an excellent thrill in the fistula. There was a dopplerable signals at the wrist in the radial artery. At this point I was very satisfied. I irrigated. I achieved and
confirmed full hemostasis. We then closed in layers using 3-0 Vicryl deep dermal layer followed by 4-0 Monocryl subcuticular stitch. Dermabond was applied. The patient tolerated the procedure well.
--- NOTE | 2024-02-11 13:30 | W.[place]-PDMP ---
[place]-PDMP
-
Checked the [place]- Prescription Drug Monitoring Program website, no red flags identified; safe to proceed with prescription.
== END 2024-02-11 14:05 | disposition home or self-care (01) ==
LOC: CATH 07:50
PROVIDERS: ATTENDING PHYSICIAN Surgery Vascular Surgery; FAMILY PHYSICIAN Internal Medicine; OTHER PHYSICIAN Internal Medicine
DX: N18.6 End stage renal disease (principal); Z99.2 Dependence on renal dialysis; Z79.82 Long term (current) use of aspirin; Z79.899 Other long term (current) drug therapy; I08.3 Combined rheumatic disorders of mitral, aortic and tricuspid valves
CPT/HCPCS: 36821; 80048; 85027; 85610; 85730; 86850; 86900; 86901

== ENCOUNTER → 2024-02-25 12:56 | Outpatient (REF) | payer OTHER, SELFPAY ==
[2024-02-25 13:29] VITALS: BP 109/34; BP_SYST 81
[2024-02-25 14:40] VITALS: BP 146/80
== END ==
LOC: RADI 12:56
PROVIDERS: ATTENDING PHYSICIAN Specialist
DX: T82.49XA Other complication of vascular dialysis catheter, initial encounter (principal); Y82.8 Other medical devices associated with adverse incidents; N18.6 End stage renal disease
CPT/HCPCS: 36581; 36595; 75901; 77001

== ENCOUNTER 2024-03-27 09:28 | Emergency (ER) | payer OTHER, SELFPAY ==
[2024-03-27 09:30] VITALS: BP 126/74
--- NOTE | 2024-03-27 10:05 | ED.GENMED ---
History of Present Illness
General
Chief Complaint: Head Injury
Time Seen by Provider: 03/27/24 09:41
History of Present Illness
History of Present Illness:
Patient is a 78-year-old man presenting to the emergency department after a fall. Patient states that 4 days ago he was sitting on a recliner by the fireplace when he started to fall asleep and fell forward hitting his head on the fireplace. Did
not lose consciousness. He is not on any blood thinners. 2 days later he went to an urgent care and they told him to come to the emergency department for evaluation. Secondary miscommunication patient was unable to do so he is coming today. He
denies any numbness tingling. No weakness. No headache. No vision changes. He denies any other traumatic injuries.
Past History
Past History
ED Past Medical History: CHF, HTN, Renal failure, Valvular disease and Other (Chronic renal insufficiency)
ED Past Surgical History: Cardiac, Orthopedic, Tonsilectomy and Other
Social History
Tobacco: Non-smoker
Alcohol: Occasional
Drug: None
Personal:
Living: with family
Employment: Retired
Family History
Family History: Negative Diabetes, Hypertension or CAD
Phy Exam
Physical Exam
Physical Exam:
GENERAL: no acute distress
HEENT: atraumatic, extraocular muscles intact, no signs of entrapment, dentition intact, no other obvious trauma
NECK: no midline tenderness, normal range of motion, no other obvious trauma
BACK: no midline tenderness, no other obvious trauma
CHEST: no tenderness, no flail segment, no subcutaneous emphysema, no other obvious trauma
LUNGS: clear to auscultation bilaterally
CARDIOVASCULAR: regular rate and rhythm
ABDOMEN: soft, non-tender, no masses, no other obvious trauma
PELVIS: stable, no obvious injury
EXTREMITIES: moving all extremities, distal pulses intact, no other obvious trauma
NEUROLOGIC: awake, alert x 3, no focal deficits
Course
Orders/Labs/Results
Orders:
Orders
03/27/24 10:02
CT Cervical Spine W/o Iv Contr Urgent
Comment:
Reason For Exam: fall
03/27/24 10:03
CT Head W/o Iv Contrast Urgent
Comment:
Reason For Exam: fall
Vital Signs
Initial and Last Documented VS:
Initial Vital Signs
Temp Pulse Resp BP Pulse Ox
98.7 F 84 16 126/74 99
03/27/24 09:30 03/27/24 09:30 03/27/24 09:30 03/27/24 09:30 03/27/24 09:30
Last Documented Vital Signs
Temp Pulse Resp BP Pulse Ox
98.7 F 84 16 126/74 99
03/27/24 09:30 03/27/24 09:30 03/27/24 09:30 03/27/24 09:30 03/27/24 09:30
MDM/Problems Addressed
Differential Diagnosis Includes:
Patient is a 78-year-old male to the emergency department after a fall a few days ago. Vitals unremarkable and exam shows no traumatic injuries and no palpable hematoma. I did discuss with patient the probability of traumatic intracranial injury
is low given that he is multiple days out with no neurodeficits however after shared decision making patient would like to proceed with CT scan as that is what was recommended by urgent care. Will proceed with CT scan.
*Critical Care Note
Total Time (30-74mins, 75-104mins- exclusive of procedures): Not Applicable
Update Note
Update Note:
CT scan of the head per my interpretation with no acute abnormality. CT C-spine negative for acute changes. Will discharge at this time.
ED Attending Note
-
Portions of this chart may have been created with voice recognition software.� Occasional wrong word or��sound alike� substitutions may have occurred due to the inherent limitations of voice recognition software.
Discharge Plan
Departure
Patient Disposition: Home (Routine Discharge)
Date of Disposition: 03/27/24
Time of Disposition: 11:06
Patient with high blood pressure during this ER visit?: No
Discharge Problem:
Fall
Instructions: Head Injury in Adults (DC)
Prescriptions:
No Action
atorvastatin 40 mg Tablet
40 mg PO QPM
isosorbide mononitrate 30 mg Tablet Extended Release 24 Hr
30 mg PO DAILY
metolazone 5 mg Tablet
5 mg PO DAILY
Rx Instructions:
1 hour prior to lasix
allopurinol 100 mg Tablet
100 mg PO NOON
furosemide 80 mg Tablet
80 mg PO BID
ProRenal QD 400-500 mcg-unit capsule
1 cap PO BID
hydralazine 25 mg Tablet
25 mg PO BID
nabumetone 750 mg Tablet
750 mg PO BID
metoprolol succinate [Toprol XL] 50 mg Tablet Extended Release 24 Hr
50 mg PO BID
calcitriol 0.5 mcg Capsule
0.5 mcg PO MOWEFR
ropinirole 4 mg Tablet
4 mg PO DAILY
sevelamer carbonate [Renvela] 800 mg Tablet
1,600 mg PO TID
doxepin 6 mg Tablet
6 mg PO HS PRN (Reason: sleep)
aspirin 81 mg Capsule
81 mg PO DAILY
Referrals:
Luís Keane DO [Family Provider] -
Activity Restrictions/Additional Instructions:
You were seen in the Emergency Department today for a fall. While you are here reporting CT scans which were reassuring.
We would like for you to follow up with your primary care physician for further evaluation. If you experience fever, worsening of your symptoms, or develop any other new or concerning symptoms, please return to the Emergency Department immediately.
Please see the attached sheet for additional information.
Interventions
Interventions:
*Risk Screen - Suicide Last Done: 03/27/24 09:33
*Neglect/Abuse Screening Last Done: 03/27/24 09:33
Discharge Date and Time
Print Language: CYMRAES
[2024-03-27 11:52] VITALS: BP 108/68
== END 2024-03-27 11:58 | disposition home or self-care (01) ==
LOC: EMR 09:28
PROVIDERS: EMERGENCY PHYSICIAN Student in an Organized Health Care Education/Training Program; FAMILY PHYSICIAN Internal Medicine
DX: S09.90XA Unspecified injury of head, initial encounter (principal); W07.XXXA Fall from chair, initial encounter; W22.09XA Striking against other stationary object, initial encounter; I13.0 Hypertensive heart and chronic kidney disease with heart failure and stage 1 through stage 4 chronic kidney disease, or unspecified chronic kidney disease; I50.9 Heart failure, unspecified; N18.9 Chronic kidney disease, unspecified; I38 Endocarditis, valve unspecified
CPT/HCPCS: 99284; 70450; 72125

== ENCOUNTER → 2024-04-28 12:45 | Outpatient (REF) | payer OTHER, SELFPAY | LOC: RAD 12:45 | PROVIDERS: ATTENDING PHYSICIAN Surgery Vascular Surgery; FAMILY PHYSICIAN Internal Medicine | DX: I77.0 Arteriovenous fistula, acquired (principal) | CPT/HCPCS: 93990 ==

== ENCOUNTER 2024-05-09 18:26 | Emergency (ER) | payer OTHER, SELFPAY ==
[2024-05-09 18:38] VITALS: BP 113/60
--- NOTE | 2024-05-09 18:40 | ED.GENMED ---
ED Provider Triage
<Chinedu Goldberg PA-C - Last Filed: 05/09/24 18:41>
-
Patient seen by provider in Triage?: Seen in Triage
Attestation: A medical screening examination has been initiated by a qualified medical provider. Based on the assessment performed at this time, it has been determined that an emergent medical condition may exist and the patient has been informed
that further medical evaluation and possible additional diagnostic testing may be needed.
HPI: 78-year-old male presenting the ER for evaluation of right forearm pain following an accidental fall yesterday. Patient wanted to go to dialysis today so waited to come in to today. No other injury sustained. Denies any loss consciousness.
No other concerns.
GENERAL: Alert , in no apparent distress
EYE: No visual abnormalities.
NECK: Trachea midline
ENT: No visible abnormalities.
LUNGS: No acute respiratory distress
NEUROLOGICAL: Alert and oriented
SKIN: Skin intact. No visible changes.
MUSCULOSKELETAL: Moving extremities normally
PSYCH: Normal and appropriate interaction.
This is a medical evaluation conducted in person to initiate diagnostic evaluation and provide initial therapeutics. Please see further documentation by the treating clinician.
History of Present Illness
<Chinedu Goldberg PA-C - Last Filed: 05/09/24 18:41>
General
Chief Complaint: Musculo-Skeletal Complaint
Time Seen by Provider: 05/09/24 22:02
<Sepideh Palomo DO - Last Filed: 05/10/24 02:27>
History of Present Illness
History of Present Illness:
78-year-old male with history of end-stage renal disease with right upper extremity fistula presenting with right upper extremity pain after a fall. Patient reports last evening he fell into a dresser. Denies any head injury or loss of
consciousness. Reports he tripped, denies any prodromal symptoms such as chest pain or difficulty breathing. Denies any recent fever or illness. Denies numbness or tingling to his upper extremity. He denies additional acute injuries from the
fall. Denies social acute medical complaints
Past History
<Chinedu Goldberg PA-C - Last Filed: 05/09/24 18:41>
Past History
ED Past Medical History: CHF, HTN, Renal failure, Valvular disease and Other (Chronic renal insufficiency)
ED Past Surgical History: Cardiac, Orthopedic, Tonsilectomy and Other
Social History
Tobacco: Non-smoker
Alcohol: Occasional
Drug: None
Personal:
Living: with family
Employment: Retired
Family History
Family History: Negative Diabetes, Hypertension or CAD
Phy Exam
<Sepideh Palomo DO - Last Filed: 05/10/24 02:27>
Physical Exam
Physical Exam:
General: Well-appearing, no clinical signs of dehydration, nontoxic and in no acute distress
HEENT: protecting airway
Neck: appears supple
CV: Normal heart rate, regular rhythm
Resp: No accessory muscle use, no increased work of breathing
Abd: no distension
Extremities: Mild swelling to the right upper extremity at the forearm. Without significant deformity. Distal sensation and pulses intact. No erythema or warmth. Palpable thrill to upper extremity fistula
Neuro: alert, no focal neurologic deficit
: deferred
Rectal: deferred
Psych: Normal affect
Skin: Intact
Course
<Chinedu Goldberg PA-C - Last Filed: 05/09/24 18:41>
Orders/Labs/Results
Orders:
Orders
05/09/24 18:39
CR Forearm - Right 2 View Urgent
Comment:
Reason For Exam: fall, pain
05/09/24 21:49
Hand, Right 3 View [CR Hand - Right Min 3 Views] Urgent
Comment:
Reason For Exam: fall/ swelling
05/10/24 01:00
Oxycodone/Acetaminophen [Percocet 5/325] 1 tablet PO NOW STA
05/10/24 02:19
Sling Right-Treatment ONCE
Vital Signs
Initial and Last Documented VS:
Initial Vital Signs
Temp Pulse Resp BP Pulse Ox
97.6 F 87 20 113/60 100
05/09/24 18:38 05/09/24 18:38 05/09/24 18:38 05/09/24 18:38 05/09/24 18:38
Last Documented Vital Signs
Temp Pulse Resp BP Pulse Ox
97.6 F 77 20 109/62 96
05/09/24 18:38 05/10/24 01:22 05/09/24 18:38 05/10/24 01:22 05/10/24 01:22
<Sepideh Palomo, DO - Last Filed: 05/10/24 02:27>
Orders/Labs/Results
Orders:
Orders
05/09/24 18:39
CR Forearm - Right 2 View Urgent
Comment:
Reason For Exam: fall, pain
05/09/24 21:49
Hand, Right 3 View [CR Hand - Right Min 3 Views] Urgent
Comment:
Reason For Exam: fall/ swelling
05/10/24 01:00
Oxycodone/Acetaminophen [Percocet 5/325] 1 tablet PO NOW STA
05/10/24 02:19
Sling Right-Treatment ONCE
Vital Signs
Initial and Last Documented VS:
Initial Vital Signs
Temp Pulse Resp BP Pulse Ox
97.6 F 87 20 113/60 100
05/09/24 18:38 05/09/24 18:38 05/09/24 18:38 05/09/24 18:38 05/09/24 18:38
Last Documented Vital Signs
Temp Pulse Resp BP Pulse Ox
97.6 F 77 20 109/62 96
05/09/24 18:38 05/10/24 01:22 05/09/24 18:38 05/10/24 01:22 05/10/24 01:22
Procedures
<Sepideh Palomo DO - Last Filed: 05/10/24 02:27>
Splinting/Sling Placement
Right Arm:
Procedure completed by: Sepideh Palomo DO
Pre-splint extermity exam: neurovascular intact
Type of splint: sugar-tong
Splint material: fiberglass
Splint checked by provider?: Yes
Type of sling: sling fitted
Normal distal neurovascular exam?: Yes
<Sepideh Palomo DO - Last Filed: 05/10/24 02:27>
MDM/Problems Addressed
MDM/Problems Addressed:
78-year-old male with history of end-stage renal disease presenting for right upper extremity pain after fall. Vital signs are normal.
On exam patient is in no acute distress. On examination of the right upper extremity, without significant deformity, mild swelling. Pain with any type of range of motion with concern for fracture. Patient had x-ray imaging prior to my assessment
with evidence of minimally displaced ulnar fracture. No neurovascular compromise to the extremity. Will splint and place in a sling for comfort, with plan for outpatient orthopedic follow-up. Otherwise no additional signs of trauma on examination.
<Sepideh Palomo DO - Last Filed: 05/10/24 02:27>
*Critical Care Note
Total Time (30-74mins, 75-104mins- exclusive of procedures): Not Applicable
ED Attending Note
<Chinedu Goldberg PA-C - Last Filed: 05/09/24 18:41>
-
Portions of this chart may have been created with voice recognition software.� Occasional wrong word or��sound alike� substitutions may have occurred due to the inherent limitations of voice recognition software.
Discharge Plan
Departure
Patient Disposition: Home (Routine Discharge)
Date of Disposition: 05/10/24
Time of Disposition: 02:23
Patient with high blood pressure during this ER visit?: Yes
Condition: Good
Discharge Problem:
Ulnar shaft fracture
Instructions: Forearm fracture
Prescriptions:
New
oxycodone-acetaminophen [Percocet] 5-325 mg tablet
1 tab PO Q8H PRN (Reason: Pain) Qty: 10 0RF
No Action
atorvastatin 40 mg Tablet
40 mg PO QPM
isosorbide mononitrate 30 mg Tablet Extended Release 24 Hr
30 mg PO DAILY
metolazone 5 mg Tablet
5 mg PO DAILY
Rx Instructions:
1 hour prior to lasix
allopurinol 100 mg Tablet
100 mg PO NOON
furosemide 80 mg Tablet
80 mg PO BID
ProRenal QD 400-500 mcg-unit capsule
1 cap PO BID
hydralazine 25 mg Tablet
25 mg PO BID
nabumetone 750 mg Tablet
750 mg PO BID
metoprolol succinate [Toprol XL] 50 mg Tablet Extended Release 24 Hr
50 mg PO BID
calcitriol 0.5 mcg Capsule
0.5 mcg PO MOWEFR
ropinirole 4 mg Tablet
4 mg PO DAILY
sevelamer carbonate [Renvela] 800 mg Tablet
1,600 mg PO TID
doxepin 6 mg Tablet
6 mg PO HS PRN (Reason: sleep)
aspirin 81 mg Capsule
81 mg PO DAILY
Referrals:
Lencho Thomas MD [Active] -
UNKNOWN - PT DOES,NOT KNOW [Family Provider] -
Activity Restrictions/Additional Instructions:
You were seen in the emergency department for arm pain
You were found to have a broken bone to your right ulna. You will need to follow-up with orthopedic doctor. Return with any increased pain to the upper extremity with swelling or redness to the skin, or any development of numbness or tingling to
the extremity
Please follow-up closely with your primary care physician.
Return to the emergency department for any worsening of your symptoms, or any development of chest pain, difficulty breathing, abdominal pain with persistent vomiting and inability to tolerate food or liquid by mouth (concern for dehydration),
weakness, headache or confusion, fever greater than 100.4, or any additional symptoms that are concerning to you.
Thank you for choosing [facility].
Interventions
Interventions:
*Risk Screen - Suicide Last Done: 05/09/24 18:38
ED-Musculoskeletal Assessment Last Done: 05/09/24 21:46
Discharge Date and Time
Print Language: TELUGU
[2024-05-09 21:45] VITALS: BP 102/54
[2024-05-10] MEDS: PERCOCET 5/325 1 TABLET PO (01:12)
[2024-05-10 01:22] VITALS: BP 109/62
[2024-05-10 03:20] VITALS: BP 108/70
== END 2024-05-10 04:15 | disposition home or self-care (01) ==
LOC: EMR 18:26
PROVIDERS: EMERGENCY PHYSICIAN Student in an Organized Health Care Education/Training Program
DX: S52.201A Unspecified fracture of shaft of right ulna, initial encounter for closed fracture (principal); W19.XXXA Unspecified fall, initial encounter; I13.2 Hypertensive heart and chronic kidney disease with heart failure and with stage 5 chronic kidney disease, or end stage renal disease; I50.9 Heart failure, unspecified; N18.6 End stage renal disease; Z99.2 Dependence on renal dialysis
CPT/HCPCS: 29125; 99283; 73090; 73130

== ENCOUNTER → 2024-08-16 14:58 | Outpatient (REF) | payer OTHER, SELFPAY | LOC: RCS 14:58 | PROVIDERS: ATTENDING PHYSICIAN Internal Medicine; FAMILY PHYSICIAN Internal Medicine | DX: I50.22 Chronic systolic (congestive) heart failure (principal); Z95.810 Presence of automatic (implantable) cardiac defibrillator; I36.1 Nonrheumatic tricuspid (valve) insufficiency; I35.0 Nonrheumatic aortic (valve) stenosis; I44.7 Left bundle-branch block, unspecified; I34.0 Nonrheumatic mitral (valve) insufficiency; I35.1 Nonrheumatic aortic (valve) insufficiency | CPT/HCPCS: 93306 ==

== ENCOUNTER → 2024-08-18 12:19 | Outpatient (REF) | payer OTHER, SELFPAY ==
[2024-08-18 12:56] VITALS: BP 86/57; BP_SYST 83
[2024-08-18 13:29] VITALS: BP 82/59
== END ==
LOC: RADI 12:19
PROVIDERS: ATTENDING PHYSICIAN Specialist; FAMILY PHYSICIAN Internal Medicine
DX: Z49.01 Encounter for fitting and adjustment of extracorporeal dialysis catheter (principal)
CPT/HCPCS: 36589

== ENCOUNTER → 2024-08-30 12:25 | Outpatient (REF) | payer OTHER, SELFPAY | LOC: EMG 12:25 | PROVIDERS: ATTENDING PHYSICIAN Physician Assistant Surgical; FAMILY PHYSICIAN Internal Medicine | DX: S52.221A Displaced transverse fracture of shaft of right ulna, initial encounter for closed fracture (principal); R20.0 Anesthesia of skin | CPT/HCPCS: 95886; 95909 ==

== ENCOUNTER 2024-11-12 10:40 | Emergency (ER) | payer OTHER, SELFPAY ==
[2024-11-12] VITALS (10 sets, daily range): BP systolic 81–102; BP diastolic 46–65; PULSE 71–85
--- NOTE | 2024-11-12 11:11 | ED.GENMED ---
History of Present Illness
General
Chief Complaint: Blood Pressure Problem
Source: patient
Exam Limitations: none
Time Seen by Provider: 11/12/24 10:58
Nursing documentation reviewed up to this point in time: agreed with
History of Present Illness
History of Present Illness:
Patient is a 79-year-old male with past medical history of CHF cardiomyopathy left lower branch block end-stage renal disease on dialysis Thursday presents today with low blood pressure. Patient had dialysis yesterday but significant
other reports patient has had issues with low blood pressure and in fact is instructed to take 1 midodrine tablet before dialysis and in the middle of dialysis. Significant other reports also she recently realized that he was supposed to be taking
midodrine every day and she was unaware of this and he has not been taking it. With his low blood pressure he does seem a little weaker.
Patient did not take midodrine today but his blood pressure was low today which prompted them to come to the ER.
Patient is followed by and DR Lindsay.
Patient presents awake alert has no complaints now denies any chest pain shortness of breath. He denies any lower extremity swelling.
Patient is a poor historian and does not know his accurate med list and neither does his significant other
Past History
Past History
ED Past Medical History: CHF, HTN, Renal failure, Valvular disease and Other (Chronic renal insufficiency)
ED Past Surgical History: Cardiac, Orthopedic, Tonsilectomy and Other
Social History
Tobacco: Non-smoker
Alcohol: Occasional
Drug: None
Personal:
Living: with family
Employment: Retired
Family History
Family History: Negative Diabetes, Hypertension or CAD
Phy Exam
General Physical Exam
General Presentation: no apparent distress
General age: appears stated age
General Skin: warm and dry
General Habitus: normal
General Mental: alert
General Hydration: appears well hydrated
Neurological Exam
Neurological Exam: alert and oriented x3
Musculoskeletal Exam
Musculoskeletal Exam: full ROM
Skin Exam
Skin Exam: normal color and warm/dry
Psychiatric Exam
Psychiatric Exam: normal mood/affect
Course
Orders/Labs/Results
Orders:
Orders
11/12/24 11:29
Electrocardiogram (*1) Stat
Reason for Study: Other
Other Reason for Exam: chest pain
Cardiac Monitoring- Treatment ONCE
EKG- Treatment ONCE
IV Insert/Care/Rem.- Treatment PRN
11/12/24 11:46
Complete Blood Count/With Diff Urgent
Comprehensive Metabolic Panel Urgent
11/12/24 13:57
Midodrine [ProAmatine] 5 mg PO NOW STA
Abnormal Lab Results
11/12/24
11:46
RBC 4.69 L 10^6/uL
(4.70-6.10)
MCV 97.0 H fL
(80.0-94.0)
MCH 32.2 H pg
(27.0-31.0)
RDW 14.6 H %
(11.5-14.5)
Absolute Monos (auto) 1.4 H 10^3/uL
(0.1-0.6)
Lymphocytes % 18.4 L %
(20.5-51.1)
Monocytes % 15.3 H %
(1.7-9.3)
Chloride 95 L mmol/L
(98-107)
Carbon Dioxide 32 H mmol/L
(22-30)
Creatinine 4.7 H* mg/dL
(0.7-1.3)
Glucose 104 H mg/dl
(70-99)
11/12/24 11:46
11/12/24 11:46
Vital Signs
Initial and Last Documented VS:
Initial Vital Signs
Temp Pulse Resp BP Pulse Ox
97.5 F 97 18 93/59 96
11/12/24 10:44 11/12/24 10:44 11/12/24 10:44 11/12/24 10:44 11/12/24 10:44
Last Documented Vital Signs
Temp Pulse Resp BP Pulse Ox
97.5 F 74 22 91/59 96
11/12/24 10:44 11/12/24 14:35 11/12/24 14:35 11/12/24 14:35 11/12/24 14:15
MDM/Problems Addressed
Differential Diagnosis Includes:
Not limited to hypertension dehydration
MDM/Problems Addressed:
As documented patient is a 79-year-old male with end-stage renal disease supposed to be taking midodrine every day and has not been doing so only taking it on dialysis days. He presents hypertensive here however is well-appearing and has no
complaints. Patient was given a dose of midodrine here and evaluated by nephrology who does feel the patient is stable for discharge home. Patient again does not know his med list and neither does significant other. It is difficult to decipher
what meds he is taking and what meds he is not taking. He will need followed by cardiology as well. I did pass this onto cardiology so they could pass this onto the patient coordinator front desk and arrange an earlier appointment for him next week. I spoke with his
significant other as well as patient asking them to bring an accurate wait list ointment. They are now aware that he is to be taken midodrine every day and is stable for discharge home. He was up and ambulatory with his cane feels well enough to
go home.
He has not had any chest pain shortness of breath he is afebrile. White count is normal normal potassium and sodium creatinine obviously elevated as he is on end-stage renal disease .
*Pulse Oximetry
SaO2: 96
Oxygen Mode of Delivery: Room air
Patient hypoxic: no
*EKG
Interpreted by ED Provider?: Yes
Heart Rate: 79
Rate: normal
Rhythm: sinus
QRS Pattern: left bundle branch block
Ischemia: no ischemia
*Critical Care Note
Total Time (30-74mins, 75-104mins- exclusive of procedures): Not Applicable
Patient Management
Discussion with other providers: Staff Climate Scientist (hakan )
ED Attending Note
-
Portions of this chart may have been created with voice recognition software.� Occasional wrong word or��sound alike� substitutions may have occurred due to the inherent limitations of voice recognition software.
Discharge Plan
Departure
Patient Disposition: Home (Routine Discharge)
Date of Disposition: 11/12/24
Time of Disposition: 15:22
Patient with high blood pressure during this ER visit?: No
Condition: Fair
Covid-19: Not Applicable
Discharge Problem:
Acute hypotension
Prescriptions:
No Action
atorvastatin 40 mg Tablet
40 mg PO QPM
isosorbide mononitrate 30 mg Tablet Extended Release 24 Hr
30 mg PO DAILY
metolazone 5 mg Tablet
5 mg PO DAILY
Rx Instructions:
1 hour prior to lasix
allopurinol 100 mg Tablet
100 mg PO NOON
furosemide 80 mg Tablet
80 mg PO BID
ProRenal QD 400-500 mcg-unit capsule
1 cap PO BID
hydralazine 25 mg Tablet
25 mg PO BID
nabumetone 750 mg Tablet
750 mg PO BID
metoprolol succinate [Toprol XL] 50 mg Tablet Extended Release 24 Hr
50 mg PO BID
calcitriol 0.5 mcg Capsule
0.5 mcg PO MOWEFR
ropinirole 4 mg Tablet
4 mg PO DAILY
sevelamer carbonate [Renvela] 800 mg Tablet
1,600 mg PO TID
doxepin 6 mg Tablet
6 mg PO HS PRN (Reason: sleep)
aspirin 81 mg Capsule
81 mg PO DAILY
oxycodone-acetaminophen [Percocet] 5-325 mg tablet
1 tab PO Q8H PRN (Reason: Pain) Qty: 10 0RF
Referrals:
Casimiro Lindsay MD [Active, Cardiology]
Luís Keane DO [Family Provider, Internal Medicine]
Activity Restrictions/Additional Instructions:
Take midodrine daily as you were supposed to. Please follow-up with cardiology next week; call to make an appointment on Thursday. Please have an accurate medication list to bring to your appointment. Return if any worsening of symptoms. Resume
dialysis as previously scheduled.
Return if any worsening of symptoms.
Interventions
Interventions:
*Risk Screen - Suicide Last Done: 11/12/24 10:44
*General Assessment Last Done: 11/12/24 10:44
*Neglect/Abuse Screening Last Done: 11/12/24 10:44
ED- Neurological Assessment Last Done: 11/12/24 12:44
Discharge Date and Time
Print Language: SUDANESE
[2024-11-12 11:52] LABS: Hematocrit 45.5 % (39.0-52.0); Hemoglobin 15.1 g/dL (13.0-18.0); Mean Corp Hgb Conc. 33.2 g/dL (33.0-37.0); Mean Corpuscular Volume 97.0 fL (80.0-94.0); Nucleated Red Blood Cells % 0 % (-); Platelet Count 175 10^3/uL (130-400); Red Cell Dist. Width 14.6 % (11.5-14.5)
[2024-11-12 12:21] LABS: ALT (SGPT) 10 U/L (0-50); AST (SGOT) 19 U/L (17-59); Albumin 4.1 g/dl (3.5-5.0); Alkaline Phosphatase 76 U/L (38-126); Blood Urea Nitrogen 19 mg/dl (9-20); Calcium 9.3 mg/dl (8.4-10.2); Carbon Dioxide 32 mmol/L (22-30); Chloride 95 mmol/L (98-107); Glucose 104 mg/dl (70-99); Potassium 4.4 mmol/L (3.5-5.1); Sodium 137 mmol/L (135-145); Total Protein 7.0 g/dl (6.3-8.2); eGFR 12.03
== END 2024-11-12 15:45 | disposition home or self-care (01) ==
LOC: EMR 10:40
PROVIDERS: Nurse Practitioner; EMERGENCY PHYSICIAN Emergency Medicine; FAMILY PHYSICIAN Internal Medicine
DX: I95.9 Hypotension, unspecified (principal); I13.2 Hypertensive heart and chronic kidney disease with heart failure and with stage 5 chronic kidney disease, or end stage renal disease; I50.9 Heart failure, unspecified; N18.6 End stage renal disease; I42.9 Cardiomyopathy, unspecified; I38 Endocarditis, valve unspecified; Z99.2 Dependence on renal dialysis
CPT/HCPCS: 99283; 80053; 85025; 93005

== ENCOUNTER → 2025-02-23 12:50 | Outpatient (REF) | payer OTHER, SELFPAY | LOC: RCS 12:50 | PROVIDERS: ATTENDING PHYSICIAN Internal Medicine; FAMILY PHYSICIAN Internal Medicine | DX: I50.22 Chronic systolic (congestive) heart failure (principal); I36.1 Nonrheumatic tricuspid (valve) insufficiency; I35.0 Nonrheumatic aortic (valve) stenosis | CPT/HCPCS: 93306 ==